=== PATIENT | female | born 1990 | race Caucasian/White ===

== ENCOUNTER 2019-05-06 11:03 | Outpatient (RCR) | payer OTHER, SELFPAY ==
--- NOTE | ~2019-05-06 | US_ITS ---
EXAMINATION: US OB BPP wo non-stress DATE: 05/06/2019 12:32 INDICATION: Small for gestational age. Abnormal biophysical profile. Estimated gestational age of 29 weeks and 0 days. TECHNIQUE: Real-time pelvic ultrasound was performed. COMPARISON: None. FINDINGS: There is a single living fetus in vertex presentation. The placenta is posterior. heart rate i s 147 beats per minute (bpm). Biophysical profile performed by the technologist: breathing (30 sec sustained breathing in 30 minutes): 2 out of 2 movement (3 gross body movements in 30 minutes): 2 out of 2 tone (one episode of zzwzmrl-dhavxpfsx-oxrfmms limb movement): 2 out of 2 Amniotic fluid pocket (2 cm): 2 out of 2 Total score: 8 out of 8 IMPRESSION: 1. Single living fetus in vertex presentation. 2. Biophysical profile 8 out of 8. Reviewed, dictated and finalized at location B. 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
[2019-05-06 12:10] VITALS: BP 113/87; PULSE 96
== END 2019-07-15 08:20 | disposition home or self-care (01) ==
LOC: ANHOBOP 11:03
PROVIDERS: Visit Provider Obstetrics & Gynecology
DX: O36.5930 Maternal care for other known or suspected poor fetal growth, third trimester, not applicable or unspecified (principal); O36.8130 Decreased fetal movements, third trimester, not applicable or unspecified; Z3A.29 29 weeks gestation of pregnancy
CPT/HCPCS: 59025; 76819

== ENCOUNTER 2019-05-25 19:28 | Observation (INO) | payer OTHER, SELFPAY ==
[2019-05-25 19:40] VITALS: TEMP 36.5
[2019-05-25 19:43] VITALS: BP 103/60; PULSE 89
[2019-05-25 19:45] VITALS: BP 132/81; PULSE 82
[2019-05-25 20:00] VITALS: BP 134/79; PULSE 81; BMI 40.3
--- NOTE | 2019-05-26 00:18 | OBADM ---
This patient, Bettina Wylie, admitted to the OB room OB Post 116 for observation. Patient/family oriented to hospital policies and general routines including ID bracelet, bed and alarms, visiting hours, pain management, procedures, bathroom and other care routines, personal items, smoking policy, room service/diet, and visiting hours. Patient/Family are encouraged to report perceived risks to care and to ask questions if they do not understand what they are told or what they should do.
--- NOTE | 2019-05-26 00:29 | PC.NURSE ---
any charting under meenakshi ding rn was in error and was charted by spenser cheung
--- NOTE | 2019-06-23 12:10 | PM.OBTRLD ---
OB - Triage/Final Diagnosis Visit Information Date of evaluation: 05/25/19 Final Diagnosis (1) Vaginal bleeding affecting early : Code(s): O20.9 - Hemorrhage in early , unspecified Status: Acute
== END 2019-05-25 20:40 | disposition home or self-care (01) ==
PROVIDERS: Admitting Provider Obstetrics & Gynecology; Visit Provider Obstetrics & Gynecology
DX: O46.93 Antepartum hemorrhage, unspecified, third trimester (principal); Z3A.31 31 weeks gestation of pregnancy
CPT/HCPCS: G0378; G0379

== ENCOUNTER 2019-06-02 09:40 | Outpatient (CLI) | payer OTHER, SELFPAY ==
[2019-06-02 10:01] VITALS: BP 129/83; PULSE 105
[2019-06-02 10:16] VITALS: BP 130/85; PULSE 99
[2019-06-02 10:30] LABS: Basophils Percent Auto 0.3 % (0.2-1.2); Eosinophils Absolute Auto 0.1 K/mm3 (0-0.3); Eosinophils Percent Auto 1.3 % (0-4.4); Hemoglobin 11.6 g/dL (12.0-15.0); Immature Granulocyte Absolute 0.04 K/mm3 (0.00-0.031); Immature Granulocyte Percent A 0.4 % (0-0.5); Lymphocytes Percent Auto 18.8 % (18.3-44.2); Mean Corpuscular HGB Conc 33.1 g/dl (32-36); Mean Corpuscular Hemoglobin 31.5 pg (26-34); Mean Corpuscular Volume 95.1 fl (80-100); Monocytes Absolute Auto 0.9 K/mm3 (0.1-0.6); Monocytes Percent Auto 8.2 % (2.6-8.5); Platelet Count Result 222 k/mm3 (150-375); Red Blood Count 3.68 M/mm3 (4.2-5.4); Red Cell Distribution Width 13.4 % (11.5-14.5); White Blood Count 11.2 K/mm3 (4.5-10.0)
[2019-06-02 10:31] VITALS: BP 115/72; PULSE 89
--- NOTE | 2019-06-02 10:36 | PC.NURSE ---
1003- Spoke with Palma Weaver regarding patient admission for headache x 3 days. Patient states blood sugar was high this morning at 171. BS on arrival 93. BP's reveiwed. Orders for CBC, CMP, IV access, LR at 125ml/hr, Reglan 10 mg IV once, and Benadryl 25 mg IV once.
[2019-06-02] MEDS: METOCLOPRAMIDE HCL INJ 10 MG/2 ML VIAL IV PUSH (10:39)
[2019-06-02] MEDS: LACTATED RINGERS 1,000 ML 125 ML IV CONT (10:39)
[2019-06-02 10:41] LABS: Alanine Aminotransferase 31 U/L (4-35); Albumin Level 3.8 g/dL (3.5-5.1); Alkaline Phosphatase 138 U/L (38-126); Aspartate Amino Transferase 25 U/L (14-36); Bilirubin,Total 0.1 mg/dL (0.2-1.3); Blood Urea Nitrogen 7 mg/dL (7-17); Carbon Dioxide 19 mmol/L (22-30); Chloride 105 mmol/L (98-107); Estimated Glomerular Filt Rate > 60; Glucose 100 mg/dL (65-105); Potassium 3.7 mmol/L (3.4-5.0); Sodium 136 mmol/L (137-145)
[2019-06-02 10:46] VITALS: BP 92/72; PULSE 94
[2019-06-02 12:09] VITALS: BP 114/62; PULSE 81
--- NOTE | 2019-06-02 12:11 | PC.NURSE ---
1205- patient reports headache has decreased from 11/11 to 2. Patient requesting to go home at this time. Spoke with Palma Weaver CNM, orders to discharge to home. Patient to follow up in office at regularly scheduled appointment.
[2019-06-02 14:14] LABS: Glucose Point of Care 93 (65-105)
== END 2019-06-02 12:15 | disposition home or self-care (01) ==
LOC: ANHOBOP 09:44 → ANHOBPP 10:39
PROVIDERS: Advanced Practice Midwife; Visit Provider Obstetrics & Gynecology
DX: O13.9 Gestational [pregnancy-induced] hypertension without significant proteinuria, unspecified trimester (principal); R51 Headache
CPT/HCPCS: 36415; 59025; 80053; 85025; 99199; J1200; J2765; J7120

== ENCOUNTER 2019-06-23 10:35 | Observation (INO) | payer OTHER, SELFPAY ==
[2019-06-23 10:57] VITALS: BP 127/89; PULSE 105
[2019-06-23 11:00] VITALS: BMI 37.9
--- NOTE | 2019-06-23 11:00 | OBADM ---
This patient, Bettina Wylie, admitted to the OB room 115 for observation for headache and cramping. Patient/family oriented to hospital policies and general routines including ID bracelet, bed and alarms, visiting hours, pain management, procedures, bathroom and other care routines, personal items, smoking policy, room service/diet, and visiting hours. Patient/Family are encouraged to report perceived risks to care and to ask questions if they do not understand what they are told or what they should do.
[2019-06-23 11:01] VITALS: BP 129/86; PULSE 102
[2019-06-23 11:16] VITALS: BP 130/83; PULSE 102
[2019-06-23 11:31] VITALS: BP 124/82; PULSE 107
[2019-06-23 11:44] LABS: Glucose Point of Care 121 (65-105)
[2019-06-23 11:52] LABS: Basophils Percent Auto 0.2 % (0.2-1.2); Eosinophils Absolute Auto 0.1 K/mm3 (0-0.3); Eosinophils Percent Auto 1.5 % (0-4.4); Hematocrit 34.7 % (37.0-47.0); Hemoglobin 11.4 g/dL (12.0-15.0); Immature Granulocyte Absolute 0.05 K/mm3 (0.00-0.031); Immature Granulocyte Percent A 0.5 % (0-0.5); Lymphocytes Absolute Auto 1.91 K/mm3 (0.9-3.2); Lymphocytes Percent Auto 20.1 % (18.3-44.2); Mean Corpuscular HGB Conc 32.9 g/dl (32-36); Mean Corpuscular Hemoglobin 31.1 pg (26-34); Mean Corpuscular Volume 94.8 fl (80-100); Mean Platelet Volume 11.3 fl (7.4-10.4); Monocytes Absolute Auto 0.8 K/mm3 (0.1-0.6); Monocytes Percent Auto 7.9 % (2.6-8.5); Neutrophils Absolute Auto 6.6 K/mm3 (1.3-6.7); Neutrophils Percent Auto 69.8 % (45.5-73.1); Platelet Count Result 222 k/mm3 (150-375); Red Blood Count 3.66 M/mm3 (4.2-5.4); White Blood Count 9.5 K/mm3 (4.5-10.0)
[2019-06-23 11:58] LABS: Creatinine Urine 83.9 mg/dL; Total Protein Urine Random 14 mg/dL
[2019-06-23 11:58] LABS: Add Urine Microscopic? YES; Appearance Urine Clear (Clear); Bacteria Urine 1+ /hpf; Bilirubin Urine Negative (Negative); Blood Urine 1+ (Negative); Color Urine Yellow (Yellow); Glucose Urine UA Negative (Negative); Ketones Urine Negative (Negative); Leukocyte Esterase Ur Negative LEU/UL (Negative); Mucus Urine Rare /lpf; Nitrate Urine Negative (Negative); Protein Urine Negative (Negative); RBC Urine 0-2 /hpf (0-2); Specific Grav Ur 1.013 (1.001-1.035); Squamous Epithelial Cell Urine Many /hpf (Few); Urobilinogen Urine Negative mg/dL (<2.0); WBC Urine 0-3 /hpf
[2019-06-23 12:01] VITALS: BP 125/75; PULSE 95
[2019-06-23 12:02] LABS: Alanine Aminotransferase 49 U/L (4-35); Albumin Level 3.5 g/dL (3.5-5.1); Alkaline Phosphatase 191 U/L (38-126); Aspartate Amino Transferase 39 U/L (14-36); Bilirubin,Total 0.3 mg/dL (0.2-1.3); Blood Urea Nitrogen 3 mg/dL (7-17); Calcium 8.5 mg/dL (8.4-10.2); Carbon Dioxide 19 mmol/L (22-30); Chloride 105 mmol/L (98-107); Estimated Glomerular Filt Rate > 60; Glucose 118 mg/dL (65-105); Potassium 3.7 mmol/L (3.4-5.0); Sodium 133 mmol/L (137-145)
--- NOTE | 2019-07-11 12:10 | PM.OBTRLD ---
OB - Triage/Final Diagnosis Visit Information Date of evaluation: 06/23/19 Evaluation Laboratory results: Laboratory Tests 06/23/19 06/23/19 06/23/19 11:32 11:37 11:38 WBC 9.5 RBC 3.66 L Hgb 11.4 L Hct 34.7 L MCV 94.8 MCH 31.1 MCHC 32.9 RDW 13.0 Plt Count 222 MPV 11.3 H Immature Gran % (Auto) 0.5 Neut % (Auto) 69.8 Lymph % (Auto) 20.1 [place] % (Auto) 7.9 Eos % (Auto) 1.5 Baso % (Auto) 0.2 Lymph # (Auto) 1.91 [place] # (Auto) 0.8 H Eos # (Auto) 0.1 Baso # (Auto) 0.0 Abs Immat Gran (auto) 0.05 H Absolute Neuts (auto) 6.6 Absolute Nucleated RBC 0.0 Nucleated RBC % 0.0 Sodium Potassium Chloride Carbon Dioxide BUN Creatinine Estim Creat Clear Calc Estimated GFR Glucose POC Capillary Glucose 121 H Uric Acid Calcium Total Bilirubin AST ALT Alkaline Phosphatase Total Protein Albumin Urine Color Yellow Urine Appearance Clear Urine pH 6.0 Ur Specific [place] 1.013 Urine Protein Negative Urine Glucose (UA) Negative Urine Ketones Negative Ur Blood (Man) 1+ H Urine Nitrate Negative Urine Bilirubin Negative Urine Urobilinogen Negative Leukocyte Esterase Rfl Negative Urine RBC 0-2 Urine WBC 0-3 Ur Squamous Epith Cells Many H Urine Bacteria 1+ H Hyaline Casts 1-2 Urine Mucus Rare U Random Total Protein Urine Creatinine 06/23/19 06/23/19 11:38 11:39 WBC RBC Hgb Hct MCV MCH MCHC RDW Plt Count MPV Immature Gran % (Auto) Neut % (Auto) Lymph % (Auto) [place] % (Auto) Eos % (Auto) Baso % (Auto) Lymph # (Auto) [place] # (Auto) Eos # (Auto) Baso # (Auto) Abs Immat Gran (auto) Absolute Neuts (auto) Absolute Nucleated RBC Nucleated RBC % Sodium 133 L Potassium 3.7 Chloride 105 Carbon Dioxide 19 L BUN 3 L Creatinine 0.40 L Estim Creat Clear Calc Not Reportable Estimated GFR > 60 Glucose 118 H POC Capillary Glucose Uric Acid 4.0 Calcium 8.5 Total Bilirubin 0.3 AST 39 H ALT 49 H Alkaline Phosphatase 191 H Total Protein 7.0 Albumin 3.5 Urine Color Urine Appearance Urine pH Ur Specific [place] Urine Protein Urine Glucose (UA) Urine Ketones Ur Blood (Man) Urine Nitrate Urine Bilirubin Urine Urobilinogen Leukocyte Esterase Rfl Urine RBC Urine WBC Ur Squamous Epith Cells Urine Bacteria Hyaline Casts Urine Mucus U Random Total Protein 14 Urine Creatinine 83.9 Final Diagnosis (1) Vaginal bleeding affecting early : Code(s): O20.9 - Hemorrhage in early , unspecified Status: Acute
== END 2019-06-23 13:26 | disposition home or self-care (01) ==
LOC: ANHOBPP 13:00 → ANHLDR 13:26
PROVIDERS: Admitting Provider Obstetrics & Gynecology; Visit Provider Obstetrics & Gynecology
DX: O46.93 Antepartum hemorrhage, unspecified, third trimester (principal); Z3A.35 35 weeks gestation of pregnancy
CPT/HCPCS: 36415; 80053; 81001; 82570; 84156; 84550; 85025; G0378; G0379

== ENCOUNTER 2019-06-28 10:58 | Outpatient (CLI) | payer OTHER, SELFPAY ==
[2019-06-28 11:16] VITALS: BP 129/80; PULSE 106
[2019-06-28 11:37] LABS: Basophils Percent Auto 0.2 % (0.2-1.2); Eosinophils Absolute Auto 0.1 K/mm3 (0-0.3); Eosinophils Percent Auto 1.3 % (0-4.4); Hematocrit 35.4 % (37.0-47.0); Hemoglobin 11.6 g/dL (12.0-15.0); Immature Granulocyte Absolute 0.02 K/mm3 (0.00-0.031); Immature Granulocyte Percent A 0.2 % (0-0.5); Lymphocytes Absolute Auto 1.91 K/mm3 (0.9-3.2); Lymphocytes Percent Auto 22.4 % (18.3-44.2); Mean Corpuscular HGB Conc 32.8 g/dl (32-36); Mean Corpuscular Hemoglobin 31.1 pg (26-34); Mean Corpuscular Volume 94.9 fl (80-100); Mean Platelet Volume 11.5 fl (7.4-10.4); Monocytes Absolute Auto 0.8 K/mm3 (0.1-0.6); Monocytes Percent Auto 9.1 % (2.6-8.5); Neutrophils Absolute Auto 5.7 K/mm3 (1.3-6.7); Neutrophils Percent Auto 66.8 % (45.5-73.1); Platelet Count Result 215 k/mm3 (150-375); Red Blood Count 3.73 M/mm3 (4.2-5.4); Red Cell Distribution Width 12.9 % (11.5-14.5); White Blood Count 8.5 K/mm3 (4.5-10.0)
[2019-06-28 11:46] VITALS: BP 121/86; PULSE 98
[2019-06-28 11:50] LABS: Alanine Aminotransferase 36 U/L (4-35); Albumin Level 3.6 g/dL (3.5-5.1); Alkaline Phosphatase 227 U/L (38-126); Aspartate Amino Transferase 32 U/L (14-36); Bilirubin,Total 0.3 mg/dL (0.2-1.3); Blood Urea Nitrogen 5 mg/dL (7-17); Calcium 8.3 mg/dL (8.4-10.2); Carbon Dioxide 19 mmol/L (22-30); Chloride 101 mmol/L (98-107); Estimated Glomerular Filt Rate > 60; Glucose 93 mg/dL (65-105); Potassium 3.7 mmol/L (3.4-5.0); Sodium 133 mmol/L (137-145); Uric Acid 4.4 mg/dL (2.5-7.5)
[2019-06-28 12:01] VITALS: BP 121/73; PULSE 89
[2019-06-28 12:16] VITALS: BP 112/81; PULSE 88
[2019-06-28] MEDS: CYCLOBENZAPRINE HCL 5 MG TABLET PO (12:23)
[2019-06-28 12:42] LABS: Add Urine Microscopic? NO; Appearance Urine Clear (Clear); Bilirubin Urine Negative (Negative); Blood Urine Negative (Negative); Color Urine Straw (Yellow); Glucose Urine UA Negative (Negative); Ketones Urine Negative (Negative); Leukocyte Esterase Ur Negative LEU/UL (NEGATIVE); Nitrate Urine Negative (Negative); Protein Urine Negative (Negative); Specific Grav Ur 1.006 (1.001-1.035); Total Protein Urine Random 12 mg/dL; Urobilinogen Urine Negative mg/dL (<2.0)
--- NOTE | 2019-06-28 14:15 | PC.NURSE ---
Juvencio Crowley notified of cont headache after Flexeril and that the patient talked to her primary regarding her headaches and that she tried to see a neurologist. The neurologist did not except her insurance and that they wouldn't treat her until after delivery.
[2019-06-28 14:23] VITALS: BP 125/84; PULSE 89
[2019-06-28 15:18] VITALS: BP 129/80; PULSE 99
== END 2019-06-28 14:30 | disposition home or self-care (01) ==
LOC: ANHOBOP 11:02 → ANHOBPP 11:03
PROVIDERS: Visit Provider Advanced Practice Midwife
DX: O13.9 Gestational [pregnancy-induced] hypertension without significant proteinuria, unspecified trimester (principal); Z3A.00 Weeks of gestation of pregnancy not specified
CPT/HCPCS: 36415; 59025; 80053; 81003; 82570; 84156; 84550; 85025; 87086; 87088; 99199; A9270

== ENCOUNTER 2019-09-28 22:02 | Emergency (ER) | payer OTHER, SELFPAY ==
[2019-09-28 22:04] VITALS: BP 158/100; PULSE 88; RESP 20; TEMP 37; O2SAT 100
[2019-09-29] MEDS: SODIUM CHLORIDE 0.9% IV 1,000 ML 999 ML IV CONT (00:26)
[2019-09-29] MEDS: METOCLOPRAMIDE HCL INJ 10 MG/2 ML VIAL IV PUSH (00:26)
--- NOTE | 2019-09-29 00:49 | PC.NURSE ---
Patient declined request for repeat VS at this time.
--- NOTE | 2019-09-29 01:10 | ED.HA ---
HPI - Headache General Chief Complaint: Headache Stated Complaint: Headache Time Seen by Provider: 09/29/19 01:06 History of Present Illness HPI Narrative: Patient presents with her mother for severe migraine. She has not had any in 3 months, since the delivery of her son. She has taken Fioricet with good results during the . She is tried Imitrex and Maxalt in the past without improvement. She has not seen a neurologist. This headache was on the left front 8 out of 10 in pain, no visual changes, no weakness, profuse vomiting. The nurse started normal saline, Reglan, and Benadryl. The patient was pain-free upon my evaluation. MD elicited complaint: headache and migraine Pertinent past history: migraines Onset (ago): hour(s) Location: left Severity: severe Relieving factors: nothing Related Data Home Medications Medication Instructions Recorded Confirmed Se- 19 Chewable 1 tablet PO DAILY 05/12/19 06/23/19 acetaminophen [Tylenol Extra 1,000 mg PO Q6H PRN MDD 4000 mg 05/12/19 06/23/19 Strength] diphenhydramine HCl [Benadryl] 25 mg PO HS PRN 05/12/19 06/23/19 ajtumrkdrj-gtimshcluhjvr-ksjh 1 cap Q8H 05/25/19 06/23/19 [Fioricet] metformin 1,500 mg PO HS 06/23/19 06/23/19 L norgest/e.estradiol-e.estrad 1 PO DAILY 09/28/19 [Ashlyna] Allergies Allergy/AdvReac Type Severity Reaction Status Date / Time codeine AdvReac Unknown Hallucinati Verified 09/28/19 22:12 ng Review of Systems Review of Systems: Narrative: CONSTITUTIONAL: Denies fever, chills, or sweats. EYES: Denies visual changes, redness, or discharge. ENT: Denies rhinorrhea, congestion, sore throat, or otalgia. CARDIOVASCULAR: Denies chest pain, palpitations, or edema. RESPIRATORY: Denies cough or dyspnea. GASTROINTESTINAL: Denies abdominal pain, nausea, vomiting, or diarrhea. GENITOURINARY: Denies dysuria or hematuria. SKIN: Denies rash or itching. MUSCULOSKELETAL: Denies back pain, joint pain, or myalgia. NEUROLOGIC: Denies numbness, or weakness. PSYCHIATRIC: Denies anxiety or depression. [facility] Past Medical History Medical History (Updated 09/29/19 @ 01:15 by Aleida Kimball MD) Migraines Surgical History Surgical History (Updated 09/29/19 @ 01:13 by Aleida Kimball MD) History of cholecystectomy History of tonsillectomy Family History Family History Father Mitral valve prolapse Mother Migraines Hypertension Social History Social History (Updated 09/29/19 @ 01:13 by Aleida Kimball MD) Smoking status: Current every day smoker Substance use: never Gender identity (if verbalized by the patient): Female Spiritual care concerns: No Exam Narrative: Exam Narrative: GENERAL: Well-appearing, well-nourished, and in no acute distress.Beautiful red curly hair. HEAD: Normocephalic, atraumatic. EYES: PERRLA and EOMI. ENT: Nares clear, no rhinorrhea or epistaxis. Mucous membranes moist. NECK: Supple. CHEST: Clear to auscultation. No respiratory distress. HEART: Regular rate and rhythm. No murmur heard. Normal peripheral pulses. ABDOMEN: Soft, nontender, nondistended, normal active bowel sounds. EXTREMITIES: Normal range of motion. No edema. SKIN: Warm, dry, no rash. NEURO: No focal deficits. Alert and oriented x3. PSYCH: Normal mood and affect. Course Vital Signs Vital signs: Vital Signs Temperature 98.6 F 09/28/19 22:04 Pulse Rate 88 09/28/19 22:04 Respiratory Rate 09/28/19 22:04 Blood Pressure 158/100 H 09/28/19 22:04 Pulse Oximetry 100 09/28/19 22:04 Temperature 98.6 F 09/28/19 22:04 Pulse Rate 88 09/28/19 22:04 Respiratory Rate 09/28/19 22:04 Blood Pressure 158/100 H 09/28/19 22:04 Pulse Oximetry 100 09/28/19 22:04 MDM - Headache Differential Diagnosis Differential diagnosis: Likely migraine Medical Records Attestation: I reviewed the patient's medical records. Discharge Plan Discharge Clinic
[2019-09-29 01:28] VITALS: BP 127/91; PULSE 93; RESP 18; O2SAT 100
== END 2019-09-29 01:29 | disposition home or self-care (01) ==
PROVIDERS: Emergency Provider Emergency Medicine
DX: G43.909 Migraine, unspecified, not intractable, without status migrainosus (principal); F17.210 Nicotine dependence, cigarettes, uncomplicated
CPT/HCPCS: 96361; 96374; 96375; 99284; J1200; J2765; J7030

== ENCOUNTER 2019-10-22 10:18 | Outpatient (CLI) | payer OTHER, SELFPAY ==
--- NOTE | ~2019-10-22 | CT_ITS ---
EXAMINATION: CT brain wo con DATE: 10/22/2019 10:48 INDICATION: Migraine headache. TECHNIQUE: Computed tomography (CT) of the head was performed without intravenous contrast. The mA wa s adjusted according to patient size. Iterative reconstruction technique was employed. The dose-lengt h product was 605.33 mGy-cm. COMPARISON: None FINDINGS: There is no intracranial hemorrhage, acute infarction, or abnormal intracranial mass lesion . The ventricles are normal in size. There is mild mucosal thickening in the ethmoid sinuses. The orb its are normal. The mastoid air cells are normal. IMPRESSION: 1. Normal brain. Reviewed, dictated and finalized at location A. IMPRESSION: 1. Normal brain.
== END 2019-10-22 10:19 | disposition home or self-care (01) ==
PROVIDERS: PCP Emergency Medicine; Visit Provider Emergency Medicine
DX: G43.909 Migraine, unspecified, not intractable, without status migrainosus (principal)
CPT/HCPCS: 70450

== ENCOUNTER 2019-11-21 13:26 | Emergency (ER) | payer OTHER, SELFPAY ==
[2019-11-21 13:41] VITALS: BP 141/98; PULSE 92; RESP 16; TEMP 37.1; O2SAT 98
--- NOTE | 2019-11-21 14:01 | ED.FEMALEGU ---
HPI - Female Genitourinary General Chief complaint: Urogenital-Female Stated complaint: UTI Time Seen by Provider: 11/21/19 14:02 Source: patient and RN notes reviewed Mode of arrival: ambulatory Limitations: no limitations History of Present Illness HPI Narrative: This is a 29 years old female presents to the office for an evaluation of possible UTI. Symptoms began two days ago with decrease urination frequency and output. Associated with mid lower back pain. Denies urinary pain, urgency, or blood in the urine. Denies recent back injury or trauma. Denies changes in her medication. She is sexually active, denies concern for STI or . Related Data Home Medications Medication Instructions Recorded Confirmed L norgest/e.estradiol-e.estrad 1 PO DAILY 09/28/19 [Ashlyna] paroxetine HCl 10 mg PO DAILY 11/21/19 11/21/19 Allergies Allergy/AdvReac Type Severity Reaction Status Date / Time codeine AdvReac Unknown Hallucinati Verified 09/28/19 22:12 ng Review of Systems Review of Systems: Narrative: CONSTITUTIONAL: Denies fever, chills. ENT: Denies rhinorrhea, congestion, sore throat CARDIOVASCULAR: Denies chest pain, palpitation RESPIRATORY: Denies dyspnea, wheezing, cough GASTROINTESTINAL: Denies abdominal pain, nausea, vomiting GENITOURINARY: Denies vaginal discharge SKIN: Denies rash MUSCULOSKELETAL:Reports acute lower back pain NEUROLOGIC: Denies lightheaded All other systems reviewed are negative, except as documented in HPI. PMFSH Past Medical History Medical History (Updated 11/21/19 @ 14:11 by ASHANTI Daley) Anxiety Migraines Surgical History Surgical History (Updated 09/29/19 @ 01:13 by Aleida Kimball MD) History of cholecystectomy History of tonsillectomy Social History Social History (Updated 09/29/19 @ 01:13 by Aleida Kimball MD) Smoking status: Current every day smoker Substance use: never Gender identity (if verbalized by the patient): Female Spiritual care concerns: No Comments At time of signature, I agree with nursing past medical, surgical, social and family history. There is no relevant family history pertinent to the presenting complaint. Exam Narrative: Exam Narrative: GENERAL: This is a well-nourished, well-developed patient, in no apparent distress. CARDIOVASCULAR: Regular rate and rhythm without murmurs, gallops, or rubs. RESPIRATORY: Clear to auscultation. Breath sounds equal bilaterally. No wheezes, rales, or rhonchi. GASTROINTESTINAL: Abdomen soft, non-tender, nondistended. Bowel sounds are active. No hepato-splenomegaly, or palpable masses. No guarding. SKIN: warm, intact with no suspicious lesions or rash, good texture and turgor. NEURO: awake, alert, and oriented to person, place and time. There were no obvious focal neurologic abnormalities. Steady gait BACK: Nontender without deformity or crepitance. No flank tenderness. [place] Scale Eye Opening: Spontaneous 4 [place] Scale Motor: Obeys Commands 6 [place] Scale Verbal: Oriented 5 Course Vital Signs Vital signs: Vital Signs Temperature 98.7 F 11/21/19 13:41 Pulse Rate 92 11/21/19 13:41 Respiratory Rate 16 11/21/19 13:41 Blood Pressure 141/98 H 11/21/19 13:41 Pulse Oximetry 98 11/21/19 13:41 Temperature 98.7 F 11/21/19 13:41 Pulse Rate 92 11/21/19 13:41 Respiratory Rate 16 11/21/19 13:41 Blood Pressure 141/98 H 11/21/19 13:41 Pulse Oximetry 98 11/21/19 13:41 MDM - Female Genitourinary MDM Narrative Medical decision making narrative: Discharge instructions reviewed with patient, as well as provided in writing per nursing staff. The instructions also include specific and strict return/GO TO THE ER as well as f/u information. All questions have been answered, and the patient deny any further questions with discharge and discharge plan. Differential Diagnosis Differential diagnosis: Likely urinary tract infection, bacteria
== END 2019-11-21 14:15 | disposition home or self-care (01) ==
PROVIDERS: Emergency Provider Nurse Practitioner; PCP Emergency Medicine
DX: R35.0 Frequency of micturition (principal); R10.30 Lower abdominal pain, unspecified; F17.200 Nicotine dependence, unspecified, uncomplicated; F41.9 Anxiety disorder, unspecified
CPT/HCPCS: 81003; 87086; 87088; 99212; 99213; G0463

== ENCOUNTER 2020-12-25 13:13 | Emergency (ER) | payer OTHER, SELFPAY ==
--- NOTE | ~2020-12-25 | XR_ITS ---
EXAMINATION: XR nasal bones min 3V DATE: 12/25/2020 13:46 INDICATION: Nose injury. Nose pain. TECHNIQUE: 3 views of the nasal bones were obtained. COMPARISON: None. FINDINGS: There is chronic mild rightward deviation of the nasal septum. No fracture. There is mucosa l thickening and fluid in right maxillary sinus. IMPRESSION: 1. Fluid in right maxillary sinus. No fracture identified. Reviewed, dictated and finalized at location A.
[2020-12-25 13:25] VITALS: BP 126/88; PULSE 97; RESP 16; TEMP 37.1; O2SAT 100
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
== END 2020-12-25 14:42 | disposition home or self-care (01) ==
PROVIDERS: Emergency Provider Nurse Practitioner
DX: S00.33XA Contusion of nose, initial encounter (principal); X58.XXXA Exposure to other specified factors, initial encounter; F17.200 Nicotine dependence, unspecified, uncomplicated
CPT/HCPCS: 70160; 99213; G0463

== ENCOUNTER 2021-09-09 17:17 | Emergency (ER) | payer OTHER, SELFPAY ==
--- NOTE | ~2021-09-09 | CT_ITS ---
EXAMINATION: CT abdomen pelvis w con DATE: 09/09/2021 18:47 INDICATION: Right lower quadrant pain TECHNIQUE: Computed tomography (CT) of the abdomen and pelvis was performed with 100 mL Omnipaque-300 intravenous contrast. Automated exposure control and iterative reconstruction technique were employe d. The dose-length product was 505.67 mGy-cm. COMPARISON: None FINDINGS: Lower thorax: Bibasilar atelectasis. Liver: Normal. Biliary/Gallbladder: Gallbladder is absent. Mild intra and extrahepatically or duct dilation, likely related to prior cholecystectomy. Spleen: Normal. Pancreas: No mass or duct dilation. Adrenals:No mass. Kidneys: No mass, stone, or hydronephrosis. GI tract: No small or large bowel dilation. Normal appendix. Mesentery/Peritoneum: No ascites, mass, or free air. Retroperitoneum: No mass. Pelvis: Marked bladder distention. 3.7 cm right ovarian cyst, with layering internal debris/hemorrhag e. No mural nodularity or septation. Uterus and left ovary are normal. Small volume free pelvic fluid , within physiologic range. Soft Tissues: Soft tissues and body wall unremarkable. Bones: No acute osseous finding. IMPRESSION: No acute abdominopelvic process. 3.7 cm right ovarian cyst, likely old hemorrhagic left ovarian cyst or atypical endometrioma/dermoid, consider pelvic ultrasound follow-up in 6-12 weeks for further eval uation/confirmation. Reviewed, dictated and finalized at location K. IMPRESSION: No acute abdominopelvic process. 3.7 cm right ovarian cyst, likely old hemorrha gic left ovarian cyst or atypical endometrioma/dermoid, consider pelvic ultraso und follow-up in 6-12 weeks for further evaluation/confirmation.
[2021-09-09 17:42] VITALS: BP 143/96; PULSE 104; RESP 16; TEMP 36.9; O2SAT 100
[2021-09-09 17:57] VITALS: BP 143/96; PULSE 104; RESP 20; TEMP 36.9; O2SAT 100
[2021-09-09 18:02] LABS: Basophils Absolute Auto 0.1 K/mm3 (0.0-0.1); Basophils Percent Auto 0.6 % (0.2-1.2); Eosinophils Absolute Auto 0.3 K/mm3 (0-0.3); Eosinophils Percent Auto 3.7 % (0-4.4); Hematocrit 41.4 % (37.0-47.0); Hemoglobin 13.5 g/dL (12.0-15.0); Immature Granulocyte Absolute 0.02 K/mm3 (0.00-0.031); Immature Granulocyte Percent A 0.2 % (0-0.5); Lymphocytes Absolute Auto 2.62 K/mm3 (0.9-3.2); Lymphocytes Percent Auto 29.6 % (18.3-44.2); Mean Corpuscular HGB Conc 32.6 g/dl (32-36); Mean Corpuscular Hemoglobin 31.4 pg (26-34); Mean Corpuscular Volume 96.3 fl (80-100); Mean Platelet Volume 9.5 fl (7.4-10.4); Monocytes Absolute Auto 0.7 K/mm3 (0.1-0.6); Monocytes Percent Auto 7.9 % (2.6-8.5); Neutrophils Absolute Auto 5.1 K/mm3 (1.3-6.7); Platelet Count Result 243 k/mm3 (150-375); Red Cell Distribution Width 13.9 % (11.5-14.5); White Blood Count 8.8 K/mm3 (4.5-10.0)
--- NOTE | 2021-09-09 18:06 | ED.ABDPAIN ---
HPI - Abdominal Pain General Chief Complaint: Abdominal Pain Stated Complaint: Abd pain Time Seen by Provider: 09/09/21 18:04 Source: patient Mode of arrival: ambulatory Limitations: no limitations History of Present Illness HPI narrative: Right lower quadrant pain that started last night, constant, no radiation associated with nausea, she denies any fever, chills, vomiting, urinary symptoms, vaginal bleeding or discharge. History of cholecystectomy and ovarian cyst. Last menstrual period 1 month ago, her boyfriend vasectomy. Patient smokes, quit marijuana 3 weeks ago, drinks occasionally Related Data Allergies Allergy/AdvReac Type Severity Reaction Status Date / Time codeine AdvReac Unknown Hallucinati Verified 09/09/21 18:03 ng Review of Systems Review of Systems: All systems reviewed & are unremarkable except as noted in HPI and below PMFSH Past Medical History Medical History Anxiety Migraines Surgical History Surgical History History of cholecystectomy History of tonsillectomy Family History Family History Father Mitral valve prolapse Mother Migraines Hypertension Social History Social History Smoking status: Current every day smoker Substance use: never Gender identity (if verbalized by the patient): Female Spiritual care concerns: No Exam Narrative: General appearance: Well-developed, well-nourished Skin: Normal color Head: Normocephalic, nontraumatic Eyes: Clear conjunctiva ENT: Oropharynx normal, ears normal, nose normal Neck: Supple, nontender Chest and respiratory: Airway patent, no respiratory distress, no accessory muscle use Heart: Regular rate/rhythm Abdomen: Soft, severe tenderness right lower quadrant, positive guarding and rebound, no organomegaly, quiet bowel sounds Vascular: Normal peripheral pulses, normal capillary refill. Musculoskeletal: Normal range of motion, nontender back Neurologic: Alert and oriented ?3, [employer] is normal as tested, no gross motor deficit Course Vital Signs Vital signs: Vital Signs Temperature 36.9 C 09/09/21 17:42 Pulse Rate 104 H 09/09/21 17:42 Respiratory Rate 16 09/09/21 17:42 Blood Pressure 143/96 H 09/09/21 17:42 Pulse Oximetry 100 09/09/21 17:42 Temperature 36.9 C 09/09/21 17:57 Pulse Rate 104 H 09/09/21 17:57 Respiratory Rate 20 09/09/21 17:57 Blood Pressure 143/96 H 09/09/21 17:57 Pulse Oximetry 100 09/09/21 17:57 MDM - Abdominal Pain Lab Data Result diagrams: 09/09/21 17:48 09/09/21 17:48 Labs: Lab Results 09/09/21 09/09/21 09/09/21 Range/Units 17:48 17:48 17:48 WBC 8.8 (4.5-10.0) K/mm3 RBC 4.30 (4.2-5.4) M/mm3 Hgb 13.5 (12.0-15.0) g/dL Hct 41.4 (37.0-47.0) % MCV 96.3 (80-100) fl MCH 31.4 (26-34) pg MCHC 32.6 (32-36) g/dl RDW 13.9 (11.5-14.5) % Plt Count 243 (150-375) k/mm3 MPV 9.5 (7.4-10.4) fl Immature Gran % (Auto) 0.2 (0-0.5) % Neut % (Auto) 58.0 (45.5-73.1) % Lymph % (Auto) 29.6 (18.3-44.2) % [place] % (Auto) 7.9 (2.6-8.5) % Eos % (Auto) 3.7 (0-4.4) % Baso % (Auto) 0.6 (0.2-1.2) % Lymph # (Auto) 2.62 (0.9-3.2) K/mm3 [place] # (Auto) 0.7 H (0.1-0.6) K/mm3 Eos # (Auto) 0.3 (0-0.3) K/mm3 Baso # (Auto) 0.1 (0.0-0.1) K/mm3 Abs Immat Gran (auto) 0.02 (0.00-0.031) K/mm3 Absolute Neuts (auto) 5.1 (1.3-6.7) K/mm3 Absolute Nucleated RBC 0.0 (0.0-0.012) K/mm3 Nuclea
[2021-09-09 18:08] LABS: Appearance Urine Clear (Clear); Bilirubin Urine Negative (Negative); Glucose Urine UA Negative (Negative); Ketones Urine Negative (Negative); Leukocyte Esterase Ur Negative LEU/UL (Negative); Nitrate Urine Negative (Negative); Protein Urine Negative (Negative); Specific Grav Ur <= 1.005 (1.001-1.035); Urobilinogen Urine 0.2 mg/dL (<2.0)
[2021-09-09 18:11] LABS: Add Urine Microscopic? YES; Blood Urine Trace-Intact (Negative); Color Urine Light Yellow (Yellow)
[2021-09-09 18:12] LABS: Alanine Aminotransferase 15 U/L (6-35); Albumin Level 4.6 g/dL (3.5-5.1); Alkaline Phosphatase 69 U/L (38-126); Anion Gap 7 mmol/L (8-16); Aspartate Amino Transferase 24 U/L (14-36); Bilirubin,Total 0.3 mg/dL (0.2-1.3); Blood Urea Nitrogen 10 mg/dL (7-17); Calcium 8.7 mg/dL (8.4-10.2); Carbon Dioxide 24 mmol/L (22-30); Chloride 106 mmol/L (98-107); Estimated CRCL calculation 96 ml/min; Estimated Glomerular Filt Rate > 60; Glucose 86 mg/dL (65-110); Lipase 77 U/L (23-300); Potassium 3.9 mmol/L (3.4-5.0); Sodium 137 mmol/L (137-145)
[2021-09-09 18:16] LABS: Bacteria Urine Trace /hpf; Mucus Urine Rare /lpf; RBC Urine 0-2 /hpf (0-2); Squamous Epithelial Cell Urine Occasional /hpf (Few); WBC Urine 0-3 /hpf
[2021-09-09] MEDS: MORPHINE SULFATE (*CRX) 4 MG/ML INJ IV PUSH (18:25)
[2021-09-09] MEDS: ONDANSETRON INJ 4 MG/2 ML VIAL IV PUSH (18:25)
[2021-09-09] MEDS: SODIUM CHLORIDE 0.9% IV 1,000 ML 999 ML IV CONT (18:25)
--- NOTE | 2021-09-09 19:16 | PC.NURSE ---
Report received from TERE Clayton. This nurse assumed care of patient at this time.
[2021-09-09] MEDS: KETOROLAC 30 MG/ML VIAL (*BKC) IV PUSH (19:40)
== END 2021-09-09 19:47 | disposition home or self-care (01) ==
PROVIDERS: Emergency Medicine; Emergency Provider Emergency Medicine
DX: N83.201 Unspecified ovarian cyst, right side (principal); F17.200 Nicotine dependence, unspecified, uncomplicated
CPT/HCPCS: 36415; 74177; 80053; 81001; 81025; 83690; 85025; 96361; 96374; 96375; 99284; J1885; J2270; J2405; J7030; Q9967

== ENCOUNTER 2021-09-26 09:34 | Outpatient (CLI) | payer OTHER, SELFPAY ==
--- NOTE | ~2021-09-26 | US_ITS ---
EXAMINATION: US pelvic complete w TV DATE: 09/26/2021 10:35 INDICATION: Pelvic pain. Comparison:No prior studies for comparison. TECHNIQUE: Multiple transabdominal and endovaginal sonographic images of the pelvis performed. FINDINGS: The uterus measures 6.1 x 2.9 x 4.2 cm. The endometrial complex measures 2 mm. The right ovary measures 3.3 x 1.4 x 2.7 cm and the left ovary measures 3.9 x 1.6 x 2.5 cm. The right ovarian cyst seen on CT examination dated 09/09/2021 is not visualized on the current study. There i s a simple cyst adjacent to the left ovary measuring 2.2 x 1.5 x 1.6 cm which may represent an exophy tic ovarian cyst or paraovarian cyst. Normal doppler signal in both ovaries. There is no free fluid in the pelvis. There are no abnormal masses seen on either side. IMPRESSION: 1. Simple cyst of the left adnexa measuring up to 2.2 cm which may represents a paraovarian or exophy tic ovarian cyst. No follow-up is necessary. Reviewed, dictated and finalized at location A. IMPRESSION: 1. Simple cyst of the left adnexa measuring up to 2.2 cm which may represents a paraovarian or exophytic ovarian cyst. No follow-up is necessary.
== END 2021-09-26 09:35 | disposition home or self-care (01) ==
PROVIDERS: PCP Obstetrics & Gynecology; Visit Provider Obstetrics & Gynecology
DX: N83.202 Unspecified ovarian cyst, left side (principal); R10.2 Pelvic and perineal pain
CPT/HCPCS: 76830; 76856

== ENCOUNTER 2021-10-18 11:45 | Emergency (ER) | payer OTHER, SELFPAY ==
--- NOTE | ~2021-10-18 | XR_ITS ---
EXAMINATION: XR soft tissue neck DATE: 10/18/2021 13:30 INDICATION: Throat pain. TECHNIQUE: 2 views of the neck soft tissues were obtained. COMPARISON: None. FINDINGS: The adenoids, palatine tonsils, epiglottis, prevertebral soft tissues, and glottis are norm al. No radiopaque foreign body. IMPRESSION: 1. Normal neck soft tissues. Reviewed, dictated and finalized at location B.
[2021-10-18 11:51] VITALS: BP 131/90; PULSE 110; RESP 16; TEMP 36.6; O2SAT 100
--- NOTE | 2021-10-18 13:13 | ECG_ITS ---
Measurements Intervals [place] Rate: 81 P: 46 ID: [id number] QRS: 43 QRSD: 99 T: 23 QT: 371 QTc: 431 Interpretive Statements SINUS RHYTHM WITH SINUS ARRHYTHMIA WITH SHORT ID INTERVAL ABNORMAL ECG NO PREVIOUS ECG AVAILABLE FOR COMPARISON Electronically Signed On 10-18-2021 14:35:53 CDT by Jed Krishnamurthy M.D.
--- NOTE | 2021-10-18 13:31 | ED.URI ---
HPI - URI/Sore Throat General Chief Complaint: Upper Respiratory Infection Stated Complaint: sore throat Time Seen by Provider: 10/18/21 12:28 Source: patient and RN notes reviewed Mode of arrival: ambulatory Limitations: no limitations History of Present Illness HPI Narrative: This is a 31 year old female who presents for evaluation of sore throat. Patient states she developed throat pain yesterday. She reports this throat pain resolved yesterday. She developed this throat pain today. She states it feels like something is stuck in her throat and she feels like she is having trouble breathing. She has not taken any medication for her pain. She denies associated nausea, vomiting, runny nose, cough, fever or chest pain. patient reports some pain with swallowing but she is able to eat and drink without difficulty. Related Data Allergies Allergy/AdvReac Type Severity Reaction Status Date / Time codeine AdvReac Unknown Hallucinati Verified 10/02/21 08:16 ng Review of Systems Review of Systems: All systems reviewed & are unremarkable except as noted in HPI and below Constitutional: Constitutional: Denies chills, Denies fatigue and Denies fever(s) Eyes: Eyes: Denies change in vision ENT: Denies dizziness, Denies nasal congestion and Reports sore throat Cardiovascular: Cardiovascular: Denies chest pain, Denies rapid heart rate and Denies slow heart rate Respiratory: Respiratory: Denies chest congestion and Denies cough Gastrointestinal: Gastrointestinal: Denies abdominal pain, Denies bloating and Denies constipation Neurologic: Denies headache(s) Psychiatric: Psychiatric: Reports anxiety (history o) [facility] Past Medical History Medical History Abnormal Pap smear of cervix 10/2016 Lgsil ?? colpo done 11/2016 Benign Anxiety Gestational diabetes History of hypertension Migraines Surgical History Surgical History History of cholecystectomy (~2012) History of colposcopy (~11/2016) colposcopy Benign History of tonsillectomy (~1999) Family History Family History Father Mitral valve prolapse Mother Migraines Hypertension Heart disease Grandparent Diabetes mellitus paternal grandmother Acute myocardial infarction maternal grandmother Social History Social History Smoking status: Current every day smoker Tobacco type: cigarettes Alcohol intake: never Substance use: former Substance use type: marijuana Last use: 08/20/2021 Additional living arrangements comments: single 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 HEAD: Normocephalic, atraumatic EYES: PERRLA and EOMI, conjunctiva clear without discharge EARS: TM's clear bilaterally without erythema or dullness NOSE: Nares clear, no rhinorrhea or epistaxis THROAT:Mucous membranes moist, Oropharynx normal without erythema, exudate, peritonsillar swelling or fluctuance, poor dentition NECK: Supple, without lymphadenopathy or mass RESPIRATORY: No respiratory distress, Airway patent, Respirations non-labored, Clear to auscultation without rales, rhonchi or wheeze HEART: Regular rate and rhythm. No murmur heard. Normal peripheral pulses. ABDOMEN: Soft, nontender, nondistended, normal active bowel sounds. No masses. No rebound or guarding, No organomegaly. EXTREMITIES: No edema, normal strength with full range of motion. SKIN: Warm, dry, normal color without rash NEURO: Alert and oriented x3. CN 2-12 grossly intact. No focal deficits. PSYCH:
== END 2021-10-18 14:30 | disposition home or self-care (01) ==
PROVIDERS: Emergency Provider General Practice; PCP Obstetrics & Gynecology
DX: J02.9 Acute pharyngitis, unspecified (principal); F17.210 Nicotine dependence, cigarettes, uncomplicated; Z86.32 Personal history of gestational diabetes; R94.31 Abnormal electrocardiogram [ECG] [EKG]
CPT/HCPCS: 70360; 87081; 87880; 93005; 99283

== ENCOUNTER 2022-03-31 15:00 | Emergency (ER) | payer OTHER, SELFPAY ==
--- NOTE | ~2022-03-31 | CT_ITS ---
EXAMINATION: CT abdomen pelvis w con DATE: 03/31/2022 17:58 INDICATION: RLQ pain, n/v TECHNIQUE: Computed tomography (CT) of the abdomen and pelvis was performed with 100 mL Omnipaque-350 intravenous contrast. Automated exposure control and iterative reconstruction technique were employe d. The dose-length product was 492.42 mGy-cm. COMPARISON: 09/09/2021, pelvic ultrasound 09/26/2021. FINDINGS: Lower thorax: Unremarkable Liver: Enlarged. Biliary/Gallbladder: Gallbladder is absent. No bile duct dilation. Pancreas: No mass or duct dilation. Spleen: Normal. Adrenals:No mass. Kidneys: No mass, stone, or hydronephrosis. GI tract: Mild distal esophageal and gastric wall edema No small or large bowel dilation. Normal appe ndix. Mesentery/Peritoneum: No ascites, mass, or free air. Retroperitoneum: No mass. Pelvis: Pelvic organs are within normal limits. Incidental note of a 2 cm paraovarian or exophytic le ft ovarian cyst, which requires no follow-up. Soft Tissues: Soft tissues and body wall unremarkable. Bones: No acute osseous finding. IMPRESSION: No acute abdominopelvic process detected. Reviewed, dictated and finalized at location K. [employer]PRESENTATIVE
[2022-03-31 15:00] VITALS: BP 141/91; PULSE 90; RESP 16; TEMP 36.6; O2SAT 100
[2022-03-31 15:24] LABS: Basophils Percent Auto 0.5 % (0.2-1.2); Eosinophils Absolute Auto 0.3 K/mm3 (0-0.3); Eosinophils Percent Auto 3.4 % (0-4.4); Hematocrit 47.4 % (37.0-47.0); Hemoglobin 15.7 g/dL (12.0-15.0); Immature Granulocyte Absolute 0.02 K/mm3 (0.00-0.031); Immature Granulocyte Percent A 0.2 % (0-0.5); Lymphocytes Absolute Auto 2.32 K/mm3 (0.9-3.2); Lymphocytes Percent Auto 26.7 % (18.3-44.2); Mean Corpuscular HGB Conc 33.1 g/dl (32-36); Mean Corpuscular Volume 96.7 fl (80-100); Mean Platelet Volume 9.4 fl (7.4-10.4); Monocytes Absolute Auto 0.5 K/mm3 (0.1-0.6); Monocytes Percent Auto 5.4 % (2.6-8.5); Neutrophils Absolute Auto 5.6 K/mm3 (1.3-6.7); Neutrophils Percent Auto 63.8 % (45.5-73.1); Platelet Count Result 256 k/mm3 (150-375); Red Cell Distribution Width 13.7 % (11.5-14.5); White Blood Count 8.7 K/mm3 (4.5-10.0)
--- NOTE | 2022-03-31 16:03 | ED.ABDPAIN ---
HPI - Abdominal Pain General Chief Complaint: Abdominal Pain Stated Complaint: R SIDE ABD PAIN Time Seen by Provider: 03/31/22 15:56 History of Present Illness HPI narrative: 32-year-old female here for evaluation of right-sided abdominal pain. Patient states the pain has been intermittent in nature, first developed about 3 days ago and was mild. Today her pain was more persistent and more severe at which prompted her ED evaluation. Pain is not related to meals. Also notes nausea but no vomiting. No fevers, chills, diarrhea or constipation. Patient has not attempted any medicine for pain. She has a history of cholecystectomy. Related Data Home Medications Medication Instructions Recorded Confirmed aripiprazole 5 mg tablet mg 03/31/22 atomoxetine 40 mg capsule mg PO 03/31/22 Allergies Allergy/AdvReac Type Severity Reaction Status Date / Time codeine AdvReac Unknown Hallucinati Verified 03/31/22 17:06 ng Review of Systems Review of Systems: Gen.: Denies fevers or chills Eyes: Denies eye pain or visual change ENT: Denies congestion Respiratory: Denies shortness of breath or cough CV: Denies chest pain or palpitations GI: Reports abdominal pain and nausea. Denies diarrhea denies burning, urgency, frequency or hematuria Musculoskeletal: Denies back pain or muscle pain Neuro: Denies numbness, tingling, weakness or focal weakness Skin: Denies rash Except as documented, all other systems reviewed and negative [facility] Past Medical History Medical History Abnormal Pap smear of cervix 10/2016 Lgsil ?? colpo done 11/2016 Benign Anxiety Gestational diabetes History of hypertension Migraines Surgical History Surgical History History of cholecystectomy (~2012) History of colposcopy (~11/2016) colposcopy Benign History of tonsillectomy (~1999) Family History Family History Father Mitral valve prolapse Mother Migraines Hypertension Heart disease Grandparent Diabetes mellitus paternal grandmother Acute myocardial infarction maternal grandmother Social History Social History Smoking status: Current every day smoker Tobacco type: cigarettes Alcohol intake: never Substance use: former Substance use type: marijuana Last use: 08/20/2021 Additional living arrangements comments: single 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 Head: Normocephalic and atraumatic. EYES: PERRLA/EOMI, conjunctivae clear NOSE: No nasal drainage EARS: External ear normal in appearance THROAT: Oropharynx is clear. Mucous membranes are moist. NECK: Supple. No adenopathy, no masses. RESPIRATORY: Airway patent, respirations nonlabored. Clear to auscultation bilaterally, no rales, rhonchi, wheezing. CARDIOVASCULAR: Regular rate and rhythm without murmurs, rubs, or gallops. ABDOMINAL: Slight tenderness to palpation in right lower quadrant. Normoactive bowel sounds. Soft, nondistended. No rebound tenderness or guarding. MUSCULOSKELETAL: Extremities are warm and well-perfused. Moves all extremities well. No edema. NEURO: Normal speech. No focal neurologic deficits. SKIN: Skin is warm and dry. No rashes. PSYCHIATRIC: Normal affect/mood. Course Vital Signs Vital signs: Vital Signs Temperature 98 F 03/31/22 15:00 Pulse Rate 90 03/31/22 15:00 Respiratory Rate 16 03/31/22 15:00 Blood Pressure 141/91 H 03/31/22 15:00 Pulse Oximetry 100 03/31/22 15:00 Oxygen Delivery Room Air 03/31/22 15:00
[2022-03-31 16:51] LABS: Appearance Urine Clear (Clear); Bilirubin Urine Negative (Negative); Blood Urine Negative (Negative); Color Urine Yellow (Yellow); Glucose Urine UA Negative (Negative); Ketones Urine Negative (Negative); Leukocyte Esterase Ur Negative LEU/UL (Negative); Nitrate Urine Negative (Negative); Protein Urine Negative (Negative); Urobilinogen Urine 0.2 mg/dL (<2.0)
[2022-03-31 16:57] LABS: Add Urine Microscopic? NO
[2022-03-31 17:05] VITALS: BP 126/89; PULSE 85; RESP 18; O2SAT 100
[2022-03-31] MEDS: SODIUM CHLORIDE 0.9% IV 1,000 ML 999 ML IV CONT (17:08)
[2022-03-31] MEDS: ONDANSETRON INJ 4 MG/2 ML VIAL IV PUSH (17:09)
[2022-03-31 17:28] LABS: Alanine Aminotransferase 18 U/L (6-35); Albumin Level 4.7 g/dL (3.5-5.1); Alkaline Phosphatase 83 U/L (38-126); Anion Gap 8 mmol/L (8-16); Aspartate Amino Transferase 25 U/L (14-36); Bilirubin,Total 0.4 mg/dL (0.2-1.3); Blood Urea Nitrogen 7 mg/dL (7-17); Calcium 8.8 mg/dL (8.4-10.2); Carbon Dioxide 23 mmol/L (22-30); Chloride 107 mmol/L (98-107); Estimated CRCL calculation 112 ml/min; Estimated Glomerular Filt Rate > 60; Glucose 80 mg/dL (65-110); Lipase 54 U/L (23-300); Potassium 3.7 mmol/L (3.4-5.0); Sodium 138 mmol/L (137-145)
[2022-03-31] MEDS: MAG HYDROX/AL HYDROX/SIMETH 30 ML UDC PO (18:34)
== END 2022-03-31 18:41 | disposition home or self-care (01) ==
PROVIDERS: Emergency Medicine; Emergency Provider Physician Assistant
DX: R10.9 Unspecified abdominal pain (principal); I10 Essential (primary) hypertension; F17.210 Nicotine dependence, cigarettes, uncomplicated; F41.9 Anxiety disorder, unspecified
CPT/HCPCS: 36415; 74177; 80053; 81003; 81025; 83690; 85025; 96361; 96365; 96375; 99284; A9270; J0131; J2405; J7030; Q9967

== ENCOUNTER 2022-05-14 12:56 | Emergency (ER) | payer OTHER, MEDICAID, SELFPAY ==
[2022-05-14 13:05] VITALS: BP 142/86; PULSE 107; RESP 16; TEMP 36.9; O2SAT 100
--- NOTE | 2022-05-14 13:39 | ED.FEMALEGU ---
HPI - Female Genitourinary General Chief complaint: Urogenital-Female Stated complaint: UTI Time Seen by Provider: 05/14/22 13:39 Source: patient, RN notes reviewed and old records reviewed Mode of arrival: ambulatory Limitations: no limitations History of Present Illness HPI Narrative: 32-year-old female presents to the [facility] with complaints of urgency, burning, frequency of urination. States has been going on a couple days. Also reports low back pain. Denies fevers, abdominal pain, nausea, vomiting or diarrhea. Denies any chest pain or shortness of breath Related Data Home Medications Medication Instructions Recorded Confirmed aripiprazole 5 mg tablet 5 mg PO DAILY 03/31/22 05/14/22 atomoxetine 80 mg capsule 80 mg PO DAILY 05/14/22 05/14/22 trazodone 50 mg tablet 50 mg PO HS 05/14/22 05/14/22 Allergies Allergy/AdvReac Type Severity Reaction Status Date / Time codeine AdvReac Unknown Hallucinati Verified 05/14/22 13:34 ng Review of Systems Review of Systems: All systems reviewed & are unremarkable except as noted in HPI and below Constitutional: Constitutional: Reports no additional constitutional complaints Eyes: Eyes: Reports no additional eye complaints ENT: Reports system reviewed and no additional complaints, except as documented Cardiovascular: Cardiovascular: Reports no additional cardiovascular complaints, Denies chest pain and Denies dyspnea Respiratory: Respiratory: Reports no additional respiratory complaints, Denies chest congestion, Denies cough and Denies dyspnea Gastrointestinal: Gastrointestinal: Reports no additional gastrointestinal complaints, Denies abdominal pain, Denies nausea and Denies vomiting Genitourinary: Genitourinary: Reports as per HPI and Reports dysuria Musculoskeletal: Musculoskeletal: Reports no additional musculoskeletal complaints Integumentary/Breasts: Skin/Breast: Reports system reviewed and no additional complaints, except as docu Neurologic: Reports system reviewed and no additional complaints, except as documented Psychiatric: Psychiatric: Reports no additional psychiatric complaints Allergic/Immunologic: Allergic/Immunologic: Reports no additional allergic/immunologic complaints PMFSH Past Medical History Medical History Abnormal Pap smear of cervix 10/2016 Lgsil ?? colpo done 11/2016 Benign Anxiety Gestational diabetes History of hypertension Migraines Surgical History Surgical History History of cholecystectomy (~2012) History of colposcopy (~11/2016) colposcopy Benign History of tonsillectomy (~1999) Family History Family History Father Mitral valve prolapse Mother Migraines Hypertension Heart disease Grandparent Diabetes mellitus paternal grandmother Acute myocardial infarction maternal grandmother Social History Social History Smoking status: Current every day smoker Tobacco type: cigarettes Alcohol intake: never Substance use: former Substance use type: marijuana Last use: 08/20/2021 Additional living arrangements comments: single 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 There is no relevant family history pertinent to the patient complaint. Exam Const: General: cooperative, healthy appearing, comfortable, no acute distress, well developed, alert and well nourished Nutritional Appearance: well nourished Orientation/consciousness: patient oriented x3 Limitations: no limitati
== END 2022-05-14 13:53 | disposition home or self-care (01) ==
PROVIDERS: Emergency Provider Nurse Practitioner
DX: N39.0 Urinary tract infection, site not specified (principal); Z87.891 Personal history of nicotine dependence; I10 Essential (primary) hypertension
CPT/HCPCS: 81003; 87077; 87086; 87186; 99213; G0463

== ENCOUNTER 2022-06-11 16:27 | Emergency (ER) | payer OTHER, MEDICAID, SELFPAY ==
[2022-06-11 16:42] VITALS: BP 148/86; PULSE 96; RESP 16; TEMP 36.8; O2SAT 100
[2022-06-11 17:27] LABS: Appearance Urine Cloudy (Clear); Bilirubin Urine Negative (Negative); Blood Urine Trace-intact (Negative); Color Urine Yellow (Yellow); Glucose Urine UA Negative (Negative); Ketones Urine Negative (Negative); Leukocyte Esterase Ur Negative LEU/UL (Negative); Nitrate Urine Negative (Negative); Protein Urine Negative (Negative); pH Urine 8.5 (5.0-9.0)
[2022-06-11 17:38] LABS: Amorphous Sediment Urine Few; Mucus Urine Rare /lpf; Squamous Epithelial Cell Urine Rare /hpf (Few); WBC Urine 0-3 /hpf
[2022-06-11 17:39] LABS: Add Urine Microscopic? YES
--- NOTE | 2022-06-11 19:56 | PC.NURSE ---
patient states she has been waiting too long and left from waiting room
== END 2022-06-11 19:56 | disposition left against medical advice (07) ==
PROVIDERS: Emergency Provider Emergency Medicine
DX: R10.11 Right upper quadrant pain (principal)
CPT/HCPCS: 81001; 81025; 99199

== ENCOUNTER 2022-10-16 18:05 | Outpatient (CLI) | payer OTHER, MEDICAID, SELFPAY ==
--- NOTE | ~2022-10-16 | US_ITS ---
EXAMINATION: US pelvic complete w TV DATE: 10/16/2022 INDICATION: Frequent menses Comparison:09/26/2021 TECHNIQUE: Multiple transabdominal and endovaginal sonographic images of the pelvis performed. FINDINGS: The uterus measures 8.2 x 5 x 3.4 cm. The endometrial complex measures 3 mm. The right ovary measures 3.6 x 1.9 x 1.9 cm and the left ovary measures 3.1 x 1.5 x 1.7 cm. There is a left ovarian cyst measuring 1.7 cm. There are small follicles in each ovary. Normal doppler signal in both ovaries. There is no free fluid in the pelvis. There are no abnormal masses seen on either side. IMPRESSION: 1. Left ovarian cyst measuring 1.7 cm. Reviewed, dictated and finalized at location L.
[2022-10-17 12:03] LABS: Basophils Absolute Auto 0.1 K/mm3 (0.0-0.1); Basophils Percent Auto 0.7 % (0.2-1.2); Eosinophils Absolute Auto 0.3 K/mm3 (0-0.3); Eosinophils Percent Auto 3.5 % (0-4.4); Hematocrit 45.6 % (37.0-47.0); Hemoglobin 15.1 g/dL (12.0-15.0); Immature Granulocyte Absolute 0.02 K/mm3 (0.00-0.031); Immature Granulocyte Percent A 0.3 % (0-0.5); Lymphocytes Absolute Auto 1.61 K/mm3 (0.9-3.2); Lymphocytes Percent Auto 21.7 % (18.3-44.2); Mean Corpuscular HGB Conc 33.1 g/dl (32-36); Mean Corpuscular Hemoglobin 32.1 pg (26-34); Mean Platelet Volume 9.7 fl (7.4-10.4); Monocytes Absolute Auto 0.4 K/mm3 (0.1-0.6); Monocytes Percent Auto 5.1 % (2.6-8.5); Neutrophils Absolute Auto 5.1 K/mm3 (1.3-6.7); Neutrophils Percent Auto 68.7 % (45.5-73.1); Platelet Count Result 260 k/mm3 (150-375); Red Cell Distribution Width 13.5 % (11.5-14.5); White Blood Count 7.4 K/mm3 (4.5-10.0)
[2022-10-22 14:21] LABS: Prolactin 7.2 ng/mL (***)
== END 2022-10-16 18:06 | disposition home or self-care (01) ==
PROVIDERS: Visit Provider Obstetrics & Gynecology
DX: N92.1 Excessive and frequent menstruation with irregular cycle (principal); N83.202 Unspecified ovarian cyst, left side
CPT/HCPCS: 36415; 76830; 76856; 84146; 84443; 85025

== ENCOUNTER 2022-12-25 12:17 | Outpatient (CLI) | payer OTHER, MEDICAID, SELFPAY ==
[2022-12-25 12:54] LABS: Hematocrit 41.7 % (37.0-47.0); Hemoglobin 13.6 g/dL (12.0-15.0); Mean Corpuscular HGB Conc 32.6 g/dl (32-36); Mean Corpuscular Hemoglobin 32.4 pg (26-34); Mean Corpuscular Volume 99.3 fl (80-100); Platelet Count Result 240 k/mm3 (150-375); Red Cell Distribution Width 13.7 % (11.5-14.5)
[2022-12-25 13:14] LABS: Lithium 0.5 mmol/L (0.6-1.2)
== END 2022-12-25 12:18 | disposition home or self-care (01) ==
LOC: ANHSURGERY 12:21
PROVIDERS: Anesthesiology; Visit Provider Obstetrics & Gynecology
DX: Z01.818 Encounter for other preprocedural examination (principal); Z79.899 Other long term (current) drug therapy; N92.1 Excessive and frequent menstruation with irregular cycle
CPT/HCPCS: 36415; 80178; 85027; 86850; 86900; 86901

== ENCOUNTER 2022-12-26 00:15 | Day surgery (SDC) | payer OTHER, MEDICAID, SELFPAY ==
[2022-12-23 10:50] VITALS: BMI 32.9
--- NOTE | 2022-12-23 10:54 | PC.NURSE ---
Report to the Outpatient Waiting Room, entrance under the green pavilion located off [facility], at time 8:00 on date 12/26/22. Planned Procedure Time: 10:00. Time changes happen often and if your time is changed the preop area will call you the afternoon before. - You and your visitor will be asked to self-screen and do not enter if you have any COVID symptoms. - A mask is optional within the hospital at this time. Patients may have clear liquids (water, carbonated beverages, clear teas, apple juice) until 3 hours prior to surgery (7:00) with a maximum of 20 ounces. - No food from midnight until time of surgery Take the following medications with a SIP of water the morning of surgery: LITHIUM, PALIPERIDO DO NOT STOP ANY OF YOUR OTHER PRESCRIPTION MEDICATIONS PRIOR TO SURGERY ?EXCEPT THE FOLLOWING Medications to discontinue per physician: N/A Date to take last dose: N/A Please no make-up, nail turkish, hairspray, perfume, deodorant, or body powder the day of surgery. No jewelry (including any body piercings) or valuables the day of surgery, leave them at home. Please take a shower or bath the night before, or the morning of, surgery with an antibacterial soap. Wear comfortable, loose fitting clothing. - Jewelry must be removed prior to entering the operating room. Rings and piercings that are not removed may be cut off. - The hospital will not accept responsibility for valuables. - Please leave all valuables, including medications, at home the day of surgery. If you are going home after surgery, a licensed route driver [employer] must drive you home. - NO public transportation without another adult if you receive anesthesia. - We recommend that an adult stay with you for 24 hours following discharge. - We also recommend that you do not drive, make important decision, drink alcoholic beverages, or take any drugs that were not prescribed by your health care provider for at least 24 hours after your discharge time. Follow any additional instructions given to you from your surgeon. If you or anyone in your household have experienced Covid symptoms in the past week, please notify your surgeon or the nurse liaison at the phone number below for possible testing. Telephone instructions given to PT - YAN NEAL and asked if any additional questions and then verbalized understanding. Patient advised to call surgeon office or pre surgery nurse liaison [phone] if any additional questions.
--- NOTE | 2022-12-24 15:58 | PM.IMHP ---
H&P: HPI History of Present Illness Date/Time: 12/24/22 15:58 32-year-old 2 para 1011 female presents for definitive therapy regarding heavy irregular vaginal bleeding. She is having menstrual cycles the last 7-10 days with 3-4 days heavy with clotting cramping causing her to miss work as well as social events due to the amount of flow and discomfort. She has been on control pills which have not helped, declines endometrial ablation or IUD. Chief Complaint: Menometrorrhagia Review of Systems Review of Systems: All systems reviewed & are unremarkable except as noted in HPI and below PMFSH Past Medical History Medical History Abnormal Pap smear of cervix 10/2016 Lgsil ?? colpo done 11/2016 Benign ADHD (attention deficit hyperactivity disorder) Anxiety Bipolar disorder Gestational diabetes History of hypertension Migraines Surgical History Surgical History History of cholecystectomy (~2012) History of colposcopy (~11/2016) colposcopy Benign History of tonsillectomy (~1999) Family History Family History Father Mitral valve prolapse Mother Migraines Hypertension Heart disease Grandparent Diabetes mellitus paternal grandmother Acute myocardial infarction maternal grandmother Social History Social History Smoking packs per day: 1 Smoking cigarettes per day: 20.0 Years smoked: 10 Smoking pack-years: 10.00 Smoking status: Current every day smoker Tobacco type: cigarettes Alcohol intake: never Substance use: current Substance use type: marijuana Other substance usage details: 12/05/22 Last use: 09/02/2022 Lack of Transportation: No Lack of Food: Never True Current Housing: I Have Housing Concerned About Future Housing: No Difficulty Paying Gas/Electric Bills: No Difficulty Paying for Meds: No Currently Unemployed: No Education: Associate Degree Difficulty w/ Childcare or Family Care: No Living arrangements: with family Additional living arrangements comments: BOYFRIEND AND SON Occupation/Education: occupation 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 @ [employer] Gender identity (if verbalized by the patient): Female Sexual Orientation (if Verbalized by the Patient): Bisexual Spiritual care concerns: No Meds Home Medications and Allergies Home Medications Medication Instructions Recorded Confirmed Type lithium carbonate 300 mg capsule 300 mg PO DAILY 11/20/22 12/23/22 History lithium carbonate 300 mg capsule 450 mg PO HS 12/23/22 12/23/22 History paliperidone 1.5 mg 1.5 mg PO DAILY 12/23/22 12/23/22 History tablet,extended release 24 hr Allergies Allergy/AdvReac Type Severity Reaction Status Date / Time codeine AdvReac Unknown Hallucinati Verified 12/23/22 10:48 ng Exam Const: General: cooperative, healthy appearing and comfortable Resp: Effort & Inspection: normal respiratory effort Auscultation: clear to auscultation bilaterally Cardio: Rate: regular rate Rhythm: regular rhythm GI: Inspection: normal to inspection Auscultation: normal bowel sounds : External Female Exam: normal external appearance Speculum Exam - Vagina: normal appearance of the vagina Speculum Exam - Cervix: normal appearance of the cervix Bimanual exam- vagina & uterus: enlarged ( 8-10 week size) Bimanual Exam- Adnexa, other: normal adnexae Assessment and Plan Assessment and plan (1) Menometrorrhagia: Code(s): N92.1 - Excessive and frequent menstruation with irregular cycle Status: Acute Assessment and Plan: proceed with robotic hysterectomy with bilateral salpingectomy.
[2022-12-26] VITALS (10 sets, daily range): BP systolic 105–128; BP diastolic 69–87; PULSE 74–84; RESP 10–18; TEMP 36.4–37.6; O2SAT 97–100; BMI 31.6
--- NOTE | 2022-12-26 06:53 | WPDANESEPPF ---
Anes - Initial Pre Proc Eval Procedure: Operation Date: 12/26/22 07:30 Proposed Procedures p Robotic Assisted Total Laparoscopic Hysterectomy with Bilateral Salpingectomy - Fernando Phipps MD Date/Time: 12/26/22 06:53 Surgeon: Fernando Phipps MD Pre Op Diagnosis: Menometrorrhagia Patient Data Age: 32 Gender: F Height: 1.57 m Weight: 81.65 kg Allergies Allergy/AdvReac Type Severity Reaction Status Date / Time codeine AdvReac Unknown Hallucinati Verified 12/23/22 10:48 ng Home Medications Medication Instructions Recorded Confirmed Type lithium carbonate 300 mg capsule 300 mg PO DAILY 11/20/22 12/23/22 History lithium carbonate 300 mg capsule 450 mg PO HS 12/23/22 12/23/22 History paliperidone 1.5 mg 1.5 mg PO DAILY 12/23/22 12/23/22 History tablet,extended release 24 hr Patient hx anesthesia problems: none Family hx anesthesia problems: none Results Review: All pre-operative results and documents have been reviewed as part of the pre-operative evaluation. [facility] Past Medical History Medical History Abnormal Pap smear of cervix 10/2016 Lgsil ?? colpo done 11/2016 Benign ADHD (attention deficit hyperactivity disorder) Anxiety Bipolar disorder Gestational diabetes History of hypertension Migraines Surgical History Surgical History History of cholecystectomy (~2012) History of colposcopy (~11/2016) colposcopy Benign History of tonsillectomy (~1999) Family History Family History Father Mitral valve prolapse Mother Migraines Hypertension Heart disease Grandparent Diabetes mellitus paternal grandmother Acute myocardial infarction maternal grandmother Social History Social History Smoking packs per day: 1 Smoking cigarettes per day: 20.0 Years smoked: 10 Smoking pack-years: 10.00 Smoking status: Current every day smoker Tobacco type: cigarettes Alcohol intake: never Substance use: current Substance use type: marijuana Other substance usage details: 12/05/22 Last use: 09/02/2022 Lack of Transportation: No Lack of Food: Never True Current Housing: I Have Housing Concerned About Future Housing: No Difficulty Paying Gas/Electric Bills: No Difficulty Paying for Meds: No Currently Unemployed: No Education: Associate Degree Difficulty w/ Childcare or Family Care: No Living arrangements: with family Additional living arrangements comments: BOYFRIEND AND SON Occupation/Education: occupation 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 @ [employer] Gender identity (if verbalized by the patient): Female Sexual Orientation (if Verbalized by the Patient): Bisexual Spiritual care concerns: No Anes - Eval Final PreProcedure Day of Procedure 12/26/22 06:53 Patient weight: obese Heart: regular rate and rhythm Lungs: clear to auscultation Airway: Mallampati scale class II Neurological: alert and oriented Last oral intake: >/= 8 hours ASA classification: II Emergent: no Anesthetic plan: proceed Anesthesia type and monitoring: general ETT and standard monitoring Results Review: All pre-operative results and documents have been reviewed as part of the pre-operative evaluation. Informed Consent: The patient's anesthetic plan and its attendant risks and benefits were discussed with the patient/family/POA. Questions were solicited and answers provided to the satisfaction of the patient/family/POA.
[2022-12-26] MEDS: LACTATED RINGERS 1,000 ML 30 ML IV CONT (06:55)
--- NOTE | 2022-12-26 07:15 | WPDHPUPDATE1 ---
History and Physical Update Update Date/Time: 12/26/22 07:15 History and Physical has been reviewed, including an updated exam of the patient. There are NO changes in the patient's condition. Risks, benefits, and alternatives have been discussed and questions answered. Patient agrees to proceed with procedure.
[2022-12-26] MEDS: ACETAMINOPHEN 500 MG TABLET 1000 MG PO (07:19)
[2022-12-26] MEDS: ceFAZolin 2 GM/D5W 50 ML 2 GM/50 ML BAG IVPB (07:28)
[2022-12-26] MEDS: fentaNYL CITRATE INJ (*CRX) 100 MCG/2 ML VIAL 25 MCG IV PUSH ×4 (09:22→09:43)
--- NOTE | 2022-12-26 09:29 | P.OP_ITS ---
Procedure Note - Detailed Date of Procedure 12/26/22 Pre-op Diagnosis Menometrorrhagia Post-op Diagnosis Same Procedure Performed Robotic assisted laparoscopic hysterectomy with bilateral salpingectomy Surgeon Fernando Phipps MD Anesthesia General Findings Mildly enlarged uterus, tubes and ovaries without abnormality Description of Procedure Patient prepped and draped in usual manner for this procedure. Cervical instruments were placed for uterine mobility throughout the case. Attention was placed the abdomen and the trocar sites were marked and placed under direct visualization. Trocars were attached to the de Valdo system, instruments were placed, and surgeon moved to the console. Mesial salpinx cauterized and cut bilaterally and tubes were removed. Utero-ovarian round ligaments were cauterized and cut bladder flap was developed without difficulty and the posterior leaf the broad ligament was incised as well. Once the uterine vessels were skeletonized they were cauterized and cut. Anterior cul-de-sac also entered and this was carried circumferentially to separate the cervix from the vagina. Uterus was delivered into the vagina without difficulty. Cuff was closed using V lock suture from left angle to the right ankle with no bleeding and the cuff well approximated. Irrigation was undertaken with no bleeding and [place] arm was placed over all of the incisions sites. Gas was allowed to escape and trocars removed and incisions approximated using 0 Monocryl. Patient was then sent to recovery room in stable condition. Estimated Blood Loss -100.0 Urine Output -200.0 Drains No Packing No Pathology Yes Complications No immediate complications Condition Stable Disposition PACU [facility] Billing Surgery - Charge Forward: Surgery Billing
[2022-12-26] MEDS: HYDROmorphone HCL INJ (*CRX) 1 MG/ML SYR 0.5 MG IV PUSH ×2 (09:52→10:05)
--- NOTE | 2022-12-26 10:33 | PC.NURSE ---
PT arrived on unit via bed accompanied by her boyfriend and mother and taken to room 276. PT introductions made and plan of care discussed per post op agricultural research director surgery, pain management, daily care activities.. PT and family received such instruction and no barriers to learning identified at this time. PT received such instructions per one to one discussion, daily care guide and demonstrations this shift. PT verbalized understanding of such care.
[2022-12-26] MEDS: DEXTROSE 5%/0.45% SOD CHL 1,000 ML 125 ML IV CONT (11:22)
[2022-12-26] MEDS: HYDROcodone/acetaminophen (*CRX) 5-325 MG TABLET 1 TAB PO (11:22)
[2022-12-26] MEDS: SIMETHICONE 80 MG TAB.CHEW PO ×3 (11:23→17:30)
--- NOTE | 2022-12-26 11:46 | PHAR ---
HOME MED: PALIPERIONE ER TABS 1.5 MG; TAKE 1 TABLET BY MOUTH AT BEDTIME; VERIFIED BY PHARMACY
[2022-12-26] MEDS: ONDANSETRON INJ 4 MG/2 ML VIAL IV PUSH ×2 (13:40→17:38)
[2022-12-26] MEDS: HYDROcodone/acetaminophen (*CRX) 10-325 MG TABLET 1 TAB PO ×3 (13:48→20:30)
[2022-12-26] MEDS: NICOTINE (*PBKC) 21 MG PATCH 1 PATCH TRANSDERM (17:29)
[2022-12-26] MEDS: LITHIUM CARBONATE 150 MG CAPSULE 450 MG PO (20:30)
[2022-12-26] MEDS: MORPHINE SULFATE (*CRX) 4 MG/ML INJ IV PUSH (20:49)
[2022-12-27] VITALS: BP 126/82; PULSE 95; RESP 18; TEMP 37.6; O2SAT 97
[2022-12-27] MEDS: HYDROcodone/acetaminophen (*CRX) 10-325 MG TABLET 1 TAB PO ×3 (00:20→08:01)
[2022-12-27 04:00] VITALS: BP 118/75; PULSE 90; RESP 16; TEMP 37.1; O2SAT 97
[2022-12-27 04:54] LABS: Basophils Percent Auto 0.3 % (0.2-1.2); Eosinophils Absolute Auto 0.1 K/mm3 (0-0.3); Eosinophils Percent Auto 1.1 % (0-4.4); Hematocrit 42.4 % (37.0-47.0); Hemoglobin 13.5 g/dL (12.0-15.0); Immature Granulocyte Absolute 0.05 K/mm3 (0.00-0.031); Immature Granulocyte Percent A 0.4 % (0-0.5); Lymphocytes Absolute Auto 1.91 K/mm3 (0.9-3.2); Mean Corpuscular HGB Conc 31.8 g/dl (32-36); Mean Corpuscular Hemoglobin 31.6 pg (26-34); Mean Corpuscular Volume 99.3 fl (80-100); Mean Platelet Volume 9.9 fl (7.4-10.4); Monocytes Absolute Auto 0.8 K/mm3 (0.1-0.6); Monocytes Percent Auto 6.6 % (2.6-8.5); Neutrophils Percent Auto 75.6 % (45.5-73.1); Platelet Count Result 230 k/mm3 (150-375); Red Blood Count 4.27 M/mm3 (4.2-5.4); Red Cell Distribution Width 13.7 % (11.5-14.5); White Blood Count 11.9 K/mm3 (4.5-10.0)
--- NOTE | 2022-12-27 07:26 | P.DS_ITS ---
DS: Admitting Diagnosis Discharge Date 12/27/22 OB - DS: Summary Peripartum Data Procedures: Procedures Operation Date: 12/26/22 07:30 Actual Procedure Side Surgeon p Robotic Assisted Total Laparoscopic Hysterectomy with Bilateral Salpingectomy Bilateral Fernando Phipps MD Time Spent with Patient Time attestation: Total time spent providing and/or coordinating discharge services: DS: Data Data Completed and Pending Pending studies at discharge: Pending at discharge 12/26/22 08:43 Surgical [PTH] Routine Labs on day of discharge: Labs from last 24 hours 12/27/22 04:23 WBC 11.9 H RBC 4.27 Hgb 13.5 Hct 42.4 MCV 99.3 MCH 31.6 MCHC 31.8 L RDW 13.7 Plt Count 230 MPV 9.9 Immature Gran % (Auto) 0.4 Neut % (Auto) 75.6 H Lymph % (Auto) 16.0 L [place] % (Auto) 6.6 Eos % (Auto) 1.1 Baso % (Auto) 0.3 Lymph # (Auto) 1.91 [place] # (Auto) 0.8 H Eos # (Auto) 0.1 Baso # (Auto) 0.0 Abs Immat Gran (auto) 0.05 H Absolute Neuts (auto) 9.0 H Absolute Nucleated RBC 0.0 Nucleated RBC % 0.0 Discharge Plan Discharge Patient Disposition: Home, Self-Care Stand Alone Forms: General Discharge Instructions Discharge Medications: New hydrocodone-acetaminophen 5-325 mg Tablet 1 tablet PO Q3H PRN (Reason: Pain Rated 5 Or Less) Qty: 20 0RF Continued lithium carbonate 300 mg capsule 300 mg PO DAILY lithium carbonate 300 mg capsule 450 mg PO HS paliperidone 1.5 mg tablet extended release 24 hr 1.5 mg PO DAILY
--- NOTE | 2022-12-27 07:28 | PM.DS ---
DS: Admitting Diagnosis Discharge Date 12/27/22 Admitting Diagnosis abnormal uterine bleeding DS: Discharge Diagnosis Discharge Diagnosis (1) Menometrorrhagia: Code(s): N92.1 - Excessive and frequent menstruation with irregular cycle Status: Acute DS: Summary Hospital Course Hospital Course: Bettina Wylie was admitted after robotic assisted total laparoscopic hysterectomy and bilateral salpingectomy for abnormal uterine bleeding. The above procedure was performed with no complications. She is doing well post op. She states her pain is well controlled with PO medications. She reports minimal bleeding. She is ambulating up to the chair. Her hatfield catheter was removed. She is tolerating PO without N/V. She reports passing flatus. Status at Discharge Overall status at discharge: patient is progressing back to baseline Time Spent with Patient Time attestation: Total time spent providing and/or coordinating discharge services: Time spent: Less than 30 minutes Exam Const: General: comfortable and no acute distress Limitations: no limitations Resp: Effort & Inspection: normal respiratory effort Auscultation: clear to auscultation bilaterally Cardio: Rate: regular rate Rhythm: regular rhythm GI: Inspection: non-distended GI Palp: Yes Soft to palpation, Yes Tenderness to palpation present (GI) (milder tenderness to deep palpation) and No Guarding due to palpation present (GI) Auscultation: normal bowel sounds Other: incisions C/D/I covered with dermabond Urinary Catheter: Urinary Catheter: urine clear Skin: General skin exam: normal color Extrem: General: normal to inspection Psych: Mental Status: mental status grossly normal Affect: normal affect DS: Data Data Completed and Pending Pending studies at discharge: Pending at discharge 12/26/22 08:43 Surgical [PTH] Routine Labs on day of discharge: Labs from last 24 hours 12/27/22 04:23 WBC 11.9 H RBC 4.27 Hgb 13.5 Hct 42.4 MCV 99.3 MCH 31.6 MCHC 31.8 L RDW 13.7 Plt Count 230 MPV 9.9 Immature Gran % (Auto) 0.4 Neut % (Auto) 75.6 H Lymph % (Auto) 16.0 L [place] % (Auto) 6.6 Eos % (Auto) 1.1 Baso % (Auto) 0.3 Lymph # (Auto) 1.91 [place] # (Auto) 0.8 H Eos # (Auto) 0.1 Baso # (Auto) 0.0 Abs Immat Gran (auto) 0.05 H Absolute Neuts (auto) 9.0 H Absolute Nucleated RBC 0.0 Nucleated RBC % 0.0 Discharge Plan Discharge Patient Disposition: Home, Self-Care Patient Instructions: Laparoscopic Hysterectomy (DC) Stand Alone Forms: General Discharge Instructions Follow-up/Referrals: Fernando Phipps MD [Physician] - Discharge Medications: New hydrocodone-acetaminophen 5-325 mg Tablet 1 tablet PO Q3H PRN (Reason: Pain Rated 5 Or Less) Qty: 20 0RF Continued lithium carbonate 300 mg capsule 300 mg PO DAILY lithium carbonate 300 mg capsule 450 mg PO HS paliperidone 1.5 mg tablet extended release 24 hr 1.5 mg PO DAILY
[2022-12-27 07:40] VITALS: BP 119/78; PULSE 84; RESP 16; TEMP 36.3; O2SAT 99
[2022-12-27] MEDS: LITHIUM CARBONATE 300 MG CAPSULE PO (08:04)
== END 2022-12-27 11:11 | disposition home or self-care (01) ==
LOC: ANHSURGERY 05:57 → ANHOB2 10:43
PROVIDERS: Visit Provider Obstetrics & Gynecology
PROC: (CPT 58571; principal; 2022-12-26 07:30)
DX: N92.1 Excessive and frequent menstruation with irregular cycle (principal); N72 Inflammatory disease of cervix uteri; N83.8 Other noninflammatory disorders of ovary, fallopian tube and broad ligament; F90.2 Attention-deficit hyperactivity disorder, combined type; F31.9 Bipolar disorder, unspecified; F41.9 Anxiety disorder, unspecified; F17.210 Nicotine dependence, cigarettes, uncomplicated; F12.90 Cannabis use, unspecified, uncomplicated; E66.9 Obesity, unspecified; Z68.31 Body mass index [BMI] 31.0-31.9, adult
CPT/HCPCS: 58571; S2900; 36415; 80178; 85025; 85027; 86850; 86900; 86901; 88307; 99199; A9270; J0690; J1100; J1170; J1885; J2250; J2270; J2405; J2704; J3010; J7030; J7120

== ENCOUNTER 2023-06-30 18:11 | Emergency (ER) | payer OTHER, MEDICAID, SELFPAY ==
[2023-06-30 18:23] VITALS: BP 135/86; PULSE 84; RESP 18; TEMP 36.8; O2SAT 100
--- NOTE | 2023-06-30 18:48 | ED.EAR ---
HPI - Ear Problem General Chief complaint: Ear Stated complaint: Left Ear Irritation/Sinus Time Seen by Provider: 06/30/23 18:48 Source: patient Mode of arrival: ambulatory Limitations: no limitations History of Present Illness HPI Narrative: 33-year-old female presents with complaint of nasal congestion, postnasal drainage, sinus pressure, cough for 3 weeks. Did a telehealth visit and was given Medrol Dosepak for bronchitis. Reports no improvement. States she went to another urgent care and was given amoxicillin for sinus is, no improvement in symptoms. Afebrile. No chest pain or shortness of breath. today patient reports decreased hearing to left ear. All Systems reviewed and negative except as noted above. Related Data Home Medications Medication Instructions Recorded Confirmed albuterol sulfate 90 mcg/actuation 1 puff inhalation DIRECTED 06/30/23 06/30/23 aerosol inhaler azelastine 137 mcg (0.1 %) nasal 2 spray intranasal DIRECTED 06/30/23 06/30/23 spray aerosol Allergies Allergy/AdvReac Type Severity Reaction Status Date / Time codeine AdvReac Unknown Hallucinati Verified 06/30/23 18:30 ng Review of Systems Review of Systems: CONSTITUTIONAL: Denies fever, chills, or sweats. EYES: Denies visual changes, redness, or discharge. ENT: reports rhinorrhea, congestion. Denies sore throat, or otalgia. CARDIOVASCULAR: Denies chest pain, palpitations, or edema. RESPIRATORY: reports cough. Denies dyspnea. GASTROINTESTINAL: Denies abdominal pain, nausea, vomiting, or diarrhea. GENITOURINARY: Denies dysuria or hematuria. SKIN: Denies rash or itching. MUSCULOSKELETAL: Denies back pain, joint pain, or myalgia. NEUROLOGIC: Denies headache, numbness, or weakness. PSYCHIATRIC: Denies anxiety or depression. All other systems reviewed are negative, except as documented in HPI. [facility] Past Medical History Medical History Abnormal Pap smear of cervix 10/2016 Lgsil ?? colpo done 11/2016 Benign ADHD (attention deficit hyperactivity disorder) Anxiety Bipolar disorder Gestational diabetes History of hypertension Migraines Surgical History Surgical History History of cholecystectomy (~2012) History of colposcopy (~11/2016) colposcopy Benign History of robot-assisted laparoscopic hysterectomy (12/26/22) Robotic assisted laparoscopic hysterectomy with bilateral salpingectomy History of tonsillectomy (~1999) Family History Family History Father Mitral valve prolapse Mother Migraines Hypertension Heart disease Grandparent Diabetes mellitus paternal grandmother Acute myocardial infarction maternal grandmother Social History Social History Smoking packs per day: 1 Smoking cigarettes per day: 20.0 Years smoked: 10 Smoking pack-years: 10.00 Smoking status: Current every day smoker Tobacco type: cigarettes Alcohol intake: never Substance use: current Substance use type: marijuana Other substance usage details: 12/05/22 Last use: 09/02/2022 Lack of Transportation: No Lack of Food: Never True Current Housing: I Have Housing Concerned About Future Housing: No Difficulty Paying Gas/Electric Bills: No Difficulty Paying for Meds: No Currently Unemployed: No Education: Associate Degree Difficulty w/ Childcare or Family Care: No Living arrangements: with family Additional living arrangements comments: BOYFRIEND AND SON Occupation/Education: occupation 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
== END 2023-06-30 18:59 | disposition home or self-care (01) ==
PROVIDERS: Emergency Provider Nurse Practitioner Family
DX: J01.90 Acute sinusitis, unspecified (principal); F17.210 Nicotine dependence, cigarettes, uncomplicated; I10 Essential (primary) hypertension
CPT/HCPCS: 99213; G0463

== ENCOUNTER 2023-10-12 12:52 | Emergency (ER) | payer OTHER, SELFPAY ==
[2023-10-12 12:58] VITALS: BP 146/90; PULSE 86; RESP 15; TEMP 36.4; O2SAT 100
--- NOTE | 2023-10-12 14:08 | ED.UPPEXIN ---
HPI - Extremity Injury (Upper) General Chief Complaint: Extremity Injury, Upper Stated Complaint: pain to RUE, known fracture Time Seen by Provider: 10/12/23 13:24 History of Present Illness HPI narrative: Patient is a 33-year-old female who presents ER with pain to right elbow. She was skating yesterday when she fell and suffered fracture to her right radial neck. She was seen at an urgent care and placed in a long-arm posterior splint. She has been having intermittent pain in the elbow and tingling throughout the day. She has only been taking ibuprofen. No additional trauma. She was told to come here for further evaluation. Related Data Home Medications Medication Instructions Recorded Confirmed albuterol sulfate 90 mcg/actuation 1 puff inhalation DIRECTED 06/30/23 06/30/23 aerosol inhaler azelastine 137 mcg (0.1 %) nasal 2 spray intranasal DIRECTED 06/30/23 06/30/23 spray aerosol Allergies Allergy/AdvReac Type Severity Reaction Status Date / Time codeine AdvReac Unknown Hallucinati Verified 10/12/23 13:03 ng Review of Systems Constitutional: Constitutional: Reports no additional constitutional complaints Musculoskeletal: Musculoskeletal: Denies back pain, Reports arthralgias, Reports joint swelling and Denies muscle cramps Integumentary/Breasts: Skin/Breast: Reports system reviewed and no additional complaints, except as docu Neurologic: Denies focal weakness Comments: Intermittent arm tingling on the right PMFSH Past Medical History Medical History Abnormal Pap smear of cervix 10/2016 Lgsil ?? colpo done 11/2016 Benign ADHD (attention deficit hyperactivity disorder) Anxiety Bipolar disorder Gestational diabetes History of hypertension Migraines Surgical History Surgical History History of cholecystectomy (~2012) History of colposcopy (~11/2016) colposcopy Benign History of robot-assisted laparoscopic hysterectomy (12/26/22) Robotic assisted laparoscopic hysterectomy with bilateral salpingectomy History of tonsillectomy (~1999) Family History Family History Father Mitral valve prolapse Mother Migraines Hypertension Heart disease Grandparent Diabetes mellitus paternal grandmother Acute myocardial infarction maternal grandmother Social History Social History Smoking packs per day: 1 Smoking cigarettes per day: 20.0 Years smoked: 10 Smoking pack-years: 10.00 Smoking status: Current every day smoker Tobacco type: cigarettes Alcohol intake: never Substance use: current Substance use type: marijuana Other substance usage details: 12/05/22 Last use: 09/02/2022 Lack of Transportation: No Lack of Food: Never True Current Housing: I Have Housing Concerned About Future Housing: No Difficulty Paying Gas/Electric Bills: No Difficulty Paying for Meds: No Currently Unemployed: No Education: Associate Degree Difficulty w/ Childcare or Family Care: No Living arrangements: with family Additional living arrangements comments: BOYFRIEND AND SON Occupation/Education: occupation 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 HEAD: Normocephalic, atraumatic. ENT: Mucous membranes moist. HEART: Regular rate and rhythm. Normal peripheral pulses. EXTREMITIES: right upper extremity with long-arm posterior splint. Poorly wrapped. No edema of the hand. Normal capillary refill. Sensation intact. SKIN: Warm, dry, no rash. NEURO: Alert and oriented x3. PSYCH:
[2023-10-12 14:27] VITALS: BP 140/90; PULSE 80; RESP 18; TEMP 36.6; O2SAT 100
== END 2023-10-12 14:30 | disposition home or self-care (01) ==
PROVIDERS: Emergency Provider Emergency Medicine
DX: S52.131A Displaced fracture of neck of right radius, initial encounter for closed fracture (principal); F17.210 Nicotine dependence, cigarettes, uncomplicated; F41.9 Anxiety disorder, unspecified; F31.9 Bipolar disorder, unspecified; X19.XXXA Contact with other heat and hot substances, initial encounter
CPT/HCPCS: 99283

== ENCOUNTER 2024-01-30 05:03 | Emergency (ER) | payer OTHER, SELFPAY ==
--- NOTE | ~2024-01-30 | XR_ITS ---
EXAMINATION: XR chest 1V portable DATE: 01/30/2024 06:42 INDICATION: Shortness of breath TECHNIQUE: frontal view of the chest was obtained. COMPARISON: None FINDINGS: Subtle opacity at the lateral left lower lung zone which appears to abut one of the fissures. No pleu ral effusion or pneumothorax. The cardiomediastinal silhouette is normal. Visualized bones and soft t issues are unremarkable. IMPRESSION: 1. Subtle opacity lateral left lower lung zone which could represent atelectasis or pneumonia. Reviewed, dictated and finalized at location A. IMPRESSION: 1. Subtle opacity lateral left lower lung zone which could represent atelectasi s or pneumonia.
[2024-01-30 06:20] VITALS: PULSE 100; O2SAT 100
[2024-01-30 06:21] VITALS: O2SAT 100
[2024-01-30 06:22] VITALS: BP 135/88; PULSE 100; RESP 20; O2SAT 100
[2024-01-30 06:50] VITALS: BP 143/77; PULSE 100; RESP 19; TEMP 36.7; O2SAT 100
[2024-01-30 07:04] LABS: Basophils Absolute Auto 0.1 K/mm3 (0.0-0.1); Basophils Percent Auto 0.5 % (0.2-1.2); Eosinophils Absolute Auto 0.1 K/mm3 (0-0.3); Hematocrit 45.4 % (37.0-47.0); Hemoglobin 14.7 g/dL (12.0-15.0); Immature Granulocyte Absolute 0.03 K/mm3 (0.00-0.031); Immature Granulocyte Percent A 0.3 % (0-0.5); Immature Reticulocyte Fraction 13.7 % (3.0-15.9); Lymphocytes Absolute Auto 0.98 K/mm3 (0.9-3.2); Lymphocytes Percent Auto 9.2 % (18.3-44.2); Mean Corpuscular HGB Conc 32.4 g/dl (32-36); Mean Corpuscular Hemoglobin 31.6 pg (26-34); Mean Corpuscular Volume 97.6 fl (80-100); Mean Platelet Volume 9.6 fl (7.4-10.4); Monocytes Absolute Auto 0.4 K/mm3 (0.1-0.6); Platelet Count Result 240 k/mm3 (150-375); Red Blood Count 4.65 M/mm3 (4.2-5.4); Red Cell Distribution Width 13.8 % (11.5-14.5); Reticulocyte Hemoglobin Conten 35.9 pg (28.2-36.6); Reticulocyte Percent 1.52 % (0.7-4.3); Reticulocytes Absolute 0.07 10^6/uL (0.02-0.10); White Blood Count 10.6 K/mm3 (4.5-10.0)
[2024-01-30 07:05] LABS: Alanine Aminotransferase 52 U/L (6-35); Albumin Level 4.5 g/dL (3.5-5.1); Alkaline Phosphatase 108 U/L (38-126); Anion Gap 14 mmol/L (4-12); Aspartate Amino Transferase 98 U/L (14-36); Bilirubin,Total 0.4 mg/dL (0.2-1.3); Blood Urea Nitrogen 8 mg/dL (7-17); Carbon Dioxide 22 mmol/L (22-30); Chloride 105 mmol/L (98-107); Erythrocyte Sedimentation Rate 17 mm/hr (0-20); Estimated Glomerular Filt Rate > 60; Glucose 134 mg/dL (65-110); Lipase 56 U/L (23-300); Potassium 3.6 mmol/L (3.4-5.0); Sodium 141 mmol/L (137-145); Troponin I < 0.012 ng/mL (0.000-0.034)
[2024-01-30 07:17] VITALS: BP 144/89; PULSE 97; RESP 22; O2SAT 100
[2024-01-30] MEDS: AZITHROMYCIN 250 MG TABLET 500 MG PO (07:26)
[2024-01-30 07:31] VITALS: BP 107/96; PULSE 106; RESP 20; TEMP 36.6; O2SAT 100
--- NOTE | 2024-01-30 08:00 | ED.PROGRESS ---
Subjective Date/time seen: 01/30/24 08:00 Interval history: Patient seen and examined during [facility] EMR downtime. Please refer to downtime documentation for notes, orders, and the HPI, ROS, examination, DDx, MDM, and disposition Objective Data Vital Signs Vital Signs: Vital Signs - 24 hr 01/30/24 06:20 01/30/24 06:20 01/30/24 06:21 Temperature Pulse Rate 100 Respiratory Rate Blood Pressure Pulse Oximetry 100 100 Oxygen Delivery Room Air Room Air 01/30/24 06:22 01/30/24 06:50 01/30/24 07:17 Temperature 36.7 C Pulse Rate 100 100 97 Respiratory Rate 20 19 22 H Blood Pressure 135/88 143/77 H 144/89 H Pulse Oximetry 100 100 100 Oxygen Delivery 01/30/24 07:31 Temperature 36.6 C Pulse Rate 106 H Respiratory Rate 20 Blood Pressure 107/96 H Pulse Oximetry 100 Oxygen Delivery Meds/Results Radiology Results: ITS Impressions Chest X-Ray 01/30/24 06:44 IMPRESSION: 1. Subtle opacity lateral left lower lung zone which could represent atelectasis or pneumonia. Labs Labs: Laboratory Results - last 24 hr 01/30/24 05:20 WBC 10.6 H RBC 4.65 Hgb 14.7 Hct 45.4 MCV 97.6 MCH 31.6 MCHC 32.4 RDW 13.8 Plt Count 240 MPV 9.6 Immature Gran % (Auto) 0.3 Neut % (Auto) 85.0 H Lymph % (Auto) 9.2 L [place] % (Auto) 4.0 Eos % (Auto) 1.0 Baso % (Auto) 0.5 Lymph # (Auto) 0.98 [place] # (Auto) 0.4 Eos # (Auto) 0.1 Baso # (Auto) 0.1 Abs Immat Gran (auto) 0.03 Absolute Neuts (auto) 9.0 H Absolute Nucleated RBC 0.000 Nucleated RBC % 0.0 ESR 17 Absolute Retic 0.07 Percent Retic 1.52 Immature Retic Fraction 13.7 Retic Hgb Content 35.9 D-Dimer 0.30 Sodium 141 Potassium 3.6 Chloride 105 Carbon Dioxide 22 Anion Gap 14 H BUN 8 Creatinine 0.80 Estim Creat Clear Calc Not Reportable Estimated GFR > 60 Glucose 134 H Calcium 9.0 Total Bilirubin 0.4 AST 98 H ALT 52 H Alkaline Phosphatase 108 Troponin I < 0.012 Total Protein 8.0 Albumin 4.5 Lipase 56
== END 2024-01-30 07:35 | disposition home or self-care (01) ==
PROVIDERS: Emergency Provider Student in an Organized Health Care Education/Training Program
DX: J18.9 Pneumonia, unspecified organism (principal); F31.9 Bipolar disorder, unspecified; F41.9 Anxiety disorder, unspecified; Z79.899 Other long term (current) drug therapy
CPT/HCPCS: 36415; 71045; 80053; 83690; 84484; 85025; 85046; 85380; 85652; 99284; A9270; J7120